=== PATIENT | male | born 1925 | race Caucasian/White ===

== ENCOUNTER → 2016-05-05 | Outpatient (CLI) | payer OTHER ==
[2016-05-05 10:42] LABS: HEMATOCRIT 38.2 % (42.0-52.0); MEAN CORPUSCULAR HEMOGLOBIN 28.8 PG (27-31); MEAN CORPUSCULAR HGB CONC 31.4 g/dL (33-37); MEAN PLATELET VOLUME 11.2 FL (7.4-12.2); RDW COEFFICIENT OF VARIATION 15.5 % (11.5-14.5); RED BLOOD COUNT 4.17 10^6/uL (4.70-6.10); WHITE BLOOD COUNT 6.83 10^3/uL (4.8-10.8)
[2016-05-05 11:03] LABS: BILIRUBIN,URINE NEGATIVE (NEG); CLARITY,URINE CLEAR (CLEAR); GLUCOSE, URINE (UA) 100 mg/dL (NEG); LEUKOCYTE ESTERASE ,URINE NEGATIVE (NEG); NITRATE,URINE NEGATIVE (NEG); OCCULT BLOOD,URINE NEGATIVE (NEG); PH,URINE 5.5 (5.0-8.5); PROTEIN,URINE NEGATIVE (NEG); UROBILINOGEN,URINE 0.2 mg/dL (0.2)
[2016-05-05 11:05] LABS: URINE SAMPLE TYPE VOIDED SPECIMEN
[2016-05-05 11:08] LABS: BUN/CREATININE RATIO 15.38 (6-20); CALCIUM 9.1 mg/dL (8.7-10.7); CREATININE 1.3 mg/dL (0.70-1.50); POTASSIUM 4.4 meq/L (3.8-5.2)
--- NOTE | 2016-05-05 11:30 | EKG ---
[address] [address] Measurements Intervals [place] Rate: 51 P: 57 UT: 164 QRS: 44 QRSD: 110 T: 4 QT: 431 QTc: 406 Interpretive Statements SINUS BRADYCARDIA No previous ECG available for comparison Electronically Signed On 05-05-16 16:03:13 MDT by Eloy Busby [email or web address]
[2016-05-05 18:04] LABS: SQUAMOUS EPITHELIAL CELL,UR FEW
--- NOTE | 2016-05-05 21:41 | DI ---
CT SCAN OF THE LEFT HIP, LEFT KNEE, AND LEFT ANKLE, 05/05/2016 10:30 AM : Clinical History: Degenerative arthritis of the left knee. Preoperative scanning for producing a cust [employer] manufactured Medacta left knee implant. Scans are obtained through the left hip, the left knee, and the left ankle without IV contrast. Sagit glenys and coronal reformatted images are also generated. LEFT HIP: Degenerative arthritis is present along the superior aspect of the hip joint. There is chondrocalcino sis. LEFT KNEE: There is severe narrowing of the medial compartment. A moderate joint effusion is present. Subchondra l cysts are present in the medial femoral condyle. Large almost 10 mm diameter cysts have developed i n the posterior aspect of the tibia. No joint effusion is present. There is chondrocalcinosis. LEFT ANKLE: There are bony densities corresponding to the course of the deltoid ligament indicating previous inju ry. The ankle mortise is intact. There is an os trigonum. The anterior, middle, and posterior subtala r joint spaces are intact. READIN. There are severe degenerative arthritis of the medial compartment of the left knee. There is a mo derate joint effusion with chondrocalcinosis. 2. The left hip shows degenerative arthritis in the superior aspect of the joint with chondrocalcino sis. 3. The left ankle exam shows evidence of old injury to the deltoid ligament. The study is otherwise unremarkable.
== END ==
LOC: LAB 10:23
PROVIDERS: ATTEND Orthopaedic Surgery
DX: M17.12 Unilateral primary osteoarthritis, left knee (principal); M25.462 Effusion, left knee; M11.262 Other chondrocalcinosis, left knee; R00.1 Bradycardia, unspecified; I10 Essential (primary) hypertension; Z96.651 Presence of right artificial knee joint
CPT/HCPCS: 36415; 73700; 80048; 81001; 85027; 86850; 87641; 93005; 93010

== ENCOUNTER → 2016-06-16 | Outpatient (CLI) | payer OTHER ==
[2016-06-16 14:24] LABS: HEMATOCRIT 39.6 % (42.0-52.0); HEMOGLOBIN 12.8 g/dL (14.0-18.0); MEAN CORPUSCULAR HGB CONC 32.3 g/dL (33-37); MEAN CORPUSCULAR VOLUME 92.7 FL (80-90); MEAN PLATELET VOLUME 11.1 FL (7.4-12.2); RED BLOOD COUNT 4.27 10^6/uL (4.70-6.10)
[2016-06-16 14:30] LABS: BILIRUBIN,URINE NEGATIVE (NEG); COLOR,URINE YELLOW; GLUCOSE, URINE (UA) NEGATIVE (NEG); NITRATE,URINE NEGATIVE (NEG); OCCULT BLOOD,URINE NEGATIVE (NEG); PH,URINE 5.5 (5.0-8.5); PROTEIN,URINE TRACE mg/dl (NEG)
[2016-06-16 14:31] LABS: CLARITY,URINE CLEAR (CLEAR); URINE SAMPLE TYPE VOID
[2016-06-16 14:32] LABS: BUN/CREATININE RATIO 17.85 (6-20); CALCIUM 9.3 mg/dL (8.7-10.7)
[2016-06-16 14:33] LABS: SQUAMOUS EPITHELIAL CELL,UR FEW
== END ==
LOC: LAB 13:58
PROVIDERS: ATTEND Orthopaedic Surgery
DX: M17.12 Unilateral primary osteoarthritis, left knee (principal); I10 Essential (primary) hypertension
CPT/HCPCS: 80048; 81001; 85027; 86850; 86900; 86901

== ENCOUNTER 2016-06-17 05:49 | Inpatient (IN) | payer OTHER ==
[2016-06-17] MEDS ORDERED: ceFAZolin Inj 2gm (Premix) 50 ML IV ONE (06:01)
[2016-06-17] MEDS ORDERED: LIDOCAINE W/ SODIUM BICARB 0.5 ML SYR ONE ×2 (06:01→07:25)
[2016-06-17] MEDS ORDERED: Lactated Ringers 1,000 ML PRIMARY IV ONE (06:02)
[2016-06-17] MEDS ORDERED: Sodium Chloride 0.9% vial 10 ML ONE (06:24)
[2016-06-17] MEDS ORDERED: HEPARIN 10,000 UNIT/1 ML ONE (06:24)
[2016-06-17] MEDS ORDERED: BUPivacaine Liposome/PF (Exparel) Inj 20ml vial INFIL ONE ×2 (06:24→08:36)
[2016-06-17] MEDS ORDERED: Gentamicin Inj 40 MG/ML VIAL ONE (06:24)
[2016-06-17] MEDS ORDERED: Bacteriostatic NaCl Inj 30ml Vial ONE (06:24)
[2016-06-17] MEDS ORDERED: Sodium Chloride 0.9% 2,000 ML ONE (06:38)
[2016-06-17] MEDS ORDERED: Sodium Chloride 0.9% 500 ML ONE (06:38)
[2016-06-17] MEDS ORDERED: fentaNYL Inj 100 MCG/2 ML VIAL ONE (07:16)
[2016-06-17] MEDS ORDERED: MORPHINE SULFATE/PF 10 MG/10 ML AMPULE ONE (07:17)
[2016-06-17] MEDS ORDERED: MIDAZOLAM 5 MG/1 ML ONE (07:17)
[2016-06-17] MEDS ORDERED: BUPIVACAINE 0.25% W/ EPI - 10 ML VIAL ONE (07:23)
[2016-06-17] MEDS ORDERED: Ketorolac Inj 30 MG, Morphine Inj 5 MG, BUPivacaine Inj 0.25% PF 150 MG SPLASH ONE ×3 (07:30)
[2016-06-17] MEDS ORDERED: Sodium Chloride 0.9% 200 ML IV ONE (07:40)
[2016-06-17] MEDS ORDERED: TRANEXAMIC ACID 1,000 MG / 10 ML VIAL ONE (07:40)
[2016-06-17] MEDS ORDERED: LIDOCAINE HCL 2 % 10 ML JELLY URO-JECT TOPICAL ONE (07:52)
[2016-06-17] MEDS ORDERED: ePHEDrine Inj 50 MG/ML AMP ONE (08:24)
[2016-06-17] MEDS ORDERED: ONDANSETRON 4 MG/2 ML VIAL ONE (08:50)
[2016-06-17] MEDS ORDERED: KETAMINE 100 MG/1 ML - 5 ML ONE (08:50)
[2016-06-17] MEDS ORDERED: ePHEDrine Inj 50 MG/ML AMP IVP PRN (10:38)
[2016-06-17] MEDS ORDERED: HYDROmorphone 2 MG/1 ML IVP PRN (10:38)
[2016-06-17] MEDS ORDERED: PROMETHAZINE 25 MG/1 ML VIAL IM PRN (10:38)
[2016-06-17] MEDS ORDERED: fentaNYL Inj 100 MCG/2 ML VIAL IVP PRN (10:38)
[2016-06-17] MEDS ORDERED: NORMAL SALINE 10 ML SYRINGE FLUSH IVP PRN ×2 (10:38→12:55)
--- NOTE | 2016-06-17 10:38 | CRNA.PROCE ---
Central Neuraxis Block Placeaz - - Safety Measures: Time Out Taken, Site Verified - - Type of Block: Subarachnoid Reason for Block: Surgical Moniters Used During Block: EKG, SPO2, NIBP Sedation Used - Enter Amount Used in Comment Field: Midazolam (mg): Yes (3mg iv) , Fentanyl (mcg): Yes (50mcg iv) Positioning: Lateral Skin Prep Used: Betadine Draped: Yes Skin Infiltration - Enter Amount Used in Comment Field: 1% Xylocaine (mL): Yes ( cesar) Introducer User: 23 Gauge Spinal Needle Used: 25 Hudson 80 mm Local Anesthetic - Enter Amount Used in Comment Field: 0.75 % Bupivacaine with Dextrose (ml): Yes (15mg) Additive Used - Enter Amount Used in Comment Field: Preservative Free Morphine ( mg): Yes (0.15mg)
[2016-06-17] MEDS ORDERED: Lactated Ringers 1,000 ML PRIMARY IV SCH (10:45)
[2016-06-17] MEDS ORDERED: GLYCOPYRROLATE 0.2 MG/1 ML VIAL ONE (11:52)
--- NOTE | 2016-06-17 12:13 | DI ---
LEFT KNEE, 06/17/2016 8:06 AM: Clinical History: Status post total knee replacement. Osteoarthritis. Incorrect needle count followi ng surgery. Previous Exam: 07/14/2011. AP and lateral views are submitted. The patient is status post total left knee replacement. The prost hetic joint articulates normally. There is no radiopaque foreign body representing a needle visualize d on either projection. There is a 1 mm metallic density in the soft tissues anterior to the proximal tibia on the AP projection. This was also present on the preoperative films from 2011. Readin. Status post total left knee replacement. The prosthetic joint articulates normally. 2. There is no evidence of a retained surgical needle on these films.
[2016-06-17] MEDS ORDERED: GLYBURIDE PO SCH (12:55)
[2016-06-17] MEDS ORDERED: CETIRIZINE HCL PO SCH (12:55)
[2016-06-17] MEDS ORDERED: Methocarbamol Tab 500 MG TAB PO PRN (12:55)
[2016-06-17] MEDS ORDERED: Ondansetron ODT Tab 8 MG TAB PO PRN (12:55)
[2016-06-17] MEDS ORDERED: MAG HYDROX/AL HYDROX/SIMETH 30 ML SUSP PO PRN (12:55)
[2016-06-17] MEDS ORDERED: CALCIUM CARBONATE 500 MG (TUMS) CHEWABLE TABLET PO PRN (12:55)
[2016-06-17] MEDS ORDERED: BISACODYL 5 MG TABLET PO PRN (12:55)
[2016-06-17] MEDS ORDERED: TAMSULOSIN 0.4 MG CAPSULE PO SCH (12:55)
[2016-06-17] MEDS ORDERED: MORPHINE SULFATE 2 MG/1 ML IVP PRN (12:55)
[2016-06-17] MEDS ORDERED: ACETAMINOPHEN 325 MG TABLET PO PRN (12:55)
[2016-06-17] MEDS ORDERED: Prochlorperazine Tab 10 MG TAB PO PRN (12:55)
[2016-06-17] MEDS ORDERED: diphenhydrAMINE 25 MG CAPSULE PO PRN (12:55)
[2016-06-17] MEDS ORDERED: ONDANSETRON 4 MG/2 ML VIAL IVP PRN (12:55)
[2016-06-17] MEDS ORDERED: BISACODYL 10 MG SUPPOSITORY RECTAL PRN (12:55)
[2016-06-17] MEDS ORDERED: IBUPROFEN 400 MG TABLET PO PRN (12:55)
[2016-06-17] MEDS ORDERED: MORPHINE SULFATE 4 MG/1 ML IV PRN (13:31)
[2016-06-17] MEDS ORDERED: MORPHINE SULFATE 2 MG/1 ML IV PRN (13:31)
[2016-06-17] MEDS ORDERED: MORPHINE SULFATE 10 MG/1 ML IV PRN (13:31)
[2016-06-17] MEDS: [UNRECOGNIZED DRUG - REMARK] INASL SCH ×2 (14:36→16:03)
--- NOTE | 2016-06-17 14:46 | CONSULT ---
Consult Note - Consult Consult Date: 06/17/16 Reason for Consult: PostOp Consulation : Ortho Requesting Physician: Dr. Barber Primary Care Provider: NICHELLE MG History and Physical - History of Present Illness Date and Time of Service: 06/17/2016, 1440 Chief Complaint: Left knee pain History of Present Illness: This very pleasant 89-year-old male that has underlying diabetes, hypertension, hypercholesterolemia, amongst other medical issues, who comes in with left knee pain that's been persistent for about the last 3 years. Patient had a prior right knee replacement and is done well with that. He's tried medications, injections, and none of those have relieved his pain. He opted for left knee replacement done today which was done by Dr. Barber. See his surgical note for details. Postoperatively, the patient denies any chest pain, shortness breath, nausea or vomiting. He has been noted to be bradycardic but has been done at home to have a heart rate drop as low as the 50s. He has been somewhat hypertensive, but did hold his blood pressure medications prior to surgery today. He has had some confusion coming out of surgery, but is overall fairly oriented to knowing that he is in the hospital for some knee pain issues. No other exacerbating factors were noted. 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 Past Medical History Medical History: Diabetes mellitus, type 2. Benign hypertension. Arthritis. Hyperlipidemia. BPH (benign prostatic hyperplasia). Gastroesophageal reflux disease. Seasonal allergies Surgical History: 1. Appendectomy. 2. Right knee replacement. 3. Some sort of gastrectomy or partial gastrectomy presumably related ulcer disease, remote. Pertinent Family History: The patient, apparently, has outlived his family. Medical conditions are not known. Past Social History: Does not currently smoke or drink alcohol, is . Lives here in [place], [place]. Has 2 daughters services power of associate attorney. [facility]. Tobacco Use: Former Smoker Substance Use Type: None Alcohol Use: None Review of Systems - Respiratory Respiratory: REPORTS: Negative System Review - Cardiovascular Cardiovascular: REPORTS: Negative System Review - Gastrointestinal Gastrointestinal / Abdominal: REPORTS: Negative System Review - Genitourinary Genitourinary: REPORTS: Negative System Review - Musculoskeletal Musculoskeletal: REPORTS: Joint Pain - Knees - Neurological Neurologic: REPORTS: Negative System Review Medication / Allergies Home Medications: Home Medications Medication Instructions Recorded Confirmed Type Aspirin [Aspir 81] 1 tab PO QD tab 06/20/15 06/17/16 History Cetirizine HCl 1 tab PO DAILY tab 06/20/15 06/17/16 History Cromolyn Sodium [Nasal Allergy 1 spr INASL TID spr 06/20/15 06/17/16 History Matteson] Glyburide 0.5 mg PO QHS tab 06/20/15 06/17/16 History Losartan Potassium 1 tab PO DAILY tab 06/20/15 06/17/16 History Meloxicam 1 tab PO DAILY tab 06/20/15 06/17/16 History Methocarbamol 1 tab PO QID #0 tab 05/05/16 06/17/16 Clinic Omeprazole 2 cap PO AC #0 cap 05/05/16 06/17/16 Clinic Simvastatin 0.5 tab PO QHS #0 tab 05/05/16 06/17/16 Clinic Tamsulosin HCl 1 cap PO BID #0 cap 05/05/16 06/17/16 Clinic Levothyroxine Sodium 1 tab PO DAILY tab 06/11/16 06/17/16 History Lidocaine 1 patch TRANSDERM DAILY patch 06/11/16 06/17/16 History Allergies/Adverse Reactions: Allergies Allergy/AdvReac Type Severity Reaction Status Date / Time No Known Allergies Allergy Verified 06/17/16 06:26 Exam - Vitals Vital Signs: Vital Signs Vital Signs - Last Taken Temperature 96.3 F L 06/17/16 12:53 Pulse Rate 72 06/17/16 12:53 Respiratory Rate 14 06/17/16 12:53 Blood Pressure 165/88 06/17/16 12:53 Pulse Ox 98 06/17/16 12:53 Currently on oxygen. Heart rate during my exam ranged from 50-60 routinely. - General General Appearance: POSITIVE: No Acute Distress, Cooperative - Head Head Exam: POSITIVE: Normal Inspection, Normocephalic, Atraumatic - Eye Eye Exam: POSITIVE: No Scleral Icterus - ENT ENT Exam: POSITIVE: Mucous Membranes Moist - Neck Neck Exam: POSITIVE: Normal Inspection, No Tenderness, No Thyromegaly - Respiratory Respiratory Exam: POSITIVE: Clear to Auscultation - Bilaterally, Breathing Non Labored - Cardiovascular Cardiovascular Exam: POSITIVE: No Murmur, No Clicks, No Gallops, No Rubs, Bradycardia, No JVD - GI/Abdominal GI/Abdominal Exam: POSITIVE: Normal Bowel Sounds, Non Tender, Non Distended, Soft - Rectal Rectal Exam: POSITIVE: Deferred - External Exam: POSITIVE: Deferred Exam: POSITIVE: Deferred - Extremities Extremities Exam: POSITIVE: No Clubbing Present, No Edema Present, No Cyanosis Present, Joint Swelling (Left knee is dressed, dressing appears dry and intact.) - Neurological Neurological Exam: POSITIVE: Alert, Oriented x 3, No Facial Droop, Speech Intact / Clear, Moves All Extremities Equally - Integumentary Integumentary Exam: POSITIVE: Normal Color, Warm, Dry, Intact Results - Labs Labs - Last 24 Hours: Preoperative labs were reviewed, and when I note is what appears to be macrocytic anemia. Electrolytes look okay, creatinine is at the upper limits of normal probably representing stage III chronic kidney disease with a creatinine of 1.4. 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 insulin use: without nursing home use Qualified Description : Controlled type 2 diabetes mellitus without complication, without long-term current use of insulin Qualifier Code(s): (E11.9) Type 2 diabetes mellitus without complications (3) Hypercholesterolemia Current Visit: Yes Status: Chronic (4) Macrocytic anemia Current Visit: Yes Status: Acute (5) History of gastric ulcer Current Visit: Yes Status: Acute (6) Status post left knee replacement Current Visit: Yes Status: Acute - Assessment / Plan Additional Assessment/Plan Details: I'll check medications and resume medications for hypertension. PT and OT DVT prophylaxis. As per orthopedics. Should have 10-14 days for knee replacement. Monitor blood sugars with diabetic history. On glyburide, this may be held for now to avoid hypoglycemia. We will replace with insulin. Vitamin B12 and folate levels due to macrocytic anemia. Patient is full code. I confirmed that with his daughter. Thank you for this consult, it will be our pleasure to continue to assist in the management and evaluation of the patient's medical problems during his hospital stay.
[2016-06-17] MEDS ORDERED: Insulin Sliding Scale Protocol SUBCUT PRN (14:53)
[2016-06-17] MEDS ORDERED: DEXTROSE 50%-WATER SYRINGE 50 ML SYRINGE IVP PRN (14:53)
[2016-06-17] MEDS ORDERED: DEXTROSE 31 GM GEL PO PRN (14:53)
[2016-06-17] MEDS ORDERED: Glucagon Inj Vial 1 MG/ML VIAL IM PRN (14:53)
[2016-06-17] MEDS: ceFAZolin Inj 2gm (Premix) 2 GM in Dextrose 1 BAG IV SCH (16:00)
[2016-06-17] MEDS: LEVOTHYROXINE 100 MCG TABLET PO SCH (16:01)
[2016-06-17] MEDS: LOSARTAN 50 MG TABLET PO SCH (16:01)
[2016-06-17] MEDS: Lactated Ringers 1,000 ML PRIMARY IV SCH (16:01)
[2016-06-17] MEDS ORDERED: OMEPRAZOLE 20 MG CAPSULE PO SCH (16:30)
[2016-06-17] MEDS: OMEPRAZOLE 20 MG CAPSULE PO SCH (16:57)
[2016-06-17] MEDS: ASPIRIN EC 81 MG TABLET PO SCH (17:11)
[2016-06-17] MEDS: Insulin Lispro Flexpen 300 UNIT/3 ML INSULN.PEN SUBCUT SCH ×2 (17:19→20:07)
[2016-06-17] MEDS: Simvastatin Tab 20 MG TAB PO SCH (20:03)
[2016-06-17] MEDS: DOCUSATE 100 MG CAPSULE PO SCH (20:03)
[2016-06-17] MEDS: TAMSULOSIN 0.4 MG CAPSULE PO SCH (20:03)
--- NOTE | 2016-06-17 20:45 | ORTHO.PROG ---
Last Taken Vital Signs: Vital Signs - Last Taken Temperature 96.4 F L 06/17/16 20:15 Pulse Rate 60 06/17/16 20:15 Respiratory Rate 18 06/17/16 20:15 Blood Pressure 136/76 06/17/16 20:15 Pulse Ox 91 06/17/16 20:15 Subjective: Patient doing well status post left total knee replacement with no significant pain or discomfort Objective: Block is still in place with absent femoral nerve function. Patient with some decreased, peroneal and tibial sensory question secondary to spinal Dressing in place no evidence of drainage or active issues. Intake and Output - 8hrs 06/16/16 06/17/16 06/17/16 06/17/16 21:59 05:59 13:59 21:59 Intake: IV 2500 525 Output: Output, Urine Amount 450 Output, Estimated Blood 300 Loss Amount Other: Percent Meal Consumed Refused 100% Weight 70.307 kg Weight Measurement Method Stated by Patient Assessment: Left total knee replacement doing well Plan: Patient. In the morning, patient is using the CPM machine this evening Deep vein thromboses prophylaxis with pneumatic and Lovenox Ice on regular basis, knee immobilizer for next 72 hours
[2016-06-18] MEDS: ceFAZolin Inj 2gm (Premix) 2 GM in Dextrose 1 BAG IV SCH (00:23)
[2016-06-18] MEDS: HYDROcodone-APAP 7.5 MG-325 MG TABLET PO PRN ×2 (03:57→07:30)
[2016-06-18 04:42] LABS: HEMATOCRIT 34.2 % (42.0-52.0); HEMOGLOBIN 10.9 g/dL (14.0-18.0); MEAN CORPUSCULAR HEMOGLOBIN 29.5 PG (27-31); MEAN CORPUSCULAR HGB CONC 31.9 g/dL (33-37); MEAN CORPUSCULAR VOLUME 92.7 FL (80-90); MEAN PLATELET VOLUME 11.4 FL (7.4-12.2); RED BLOOD COUNT 3.69 10^6/uL (4.70-6.10)
[2016-06-18 05:04] LABS: CALCIUM 8.6 mg/dL (8.7-10.7)
[2016-06-18] MEDS: LEVOTHYROXINE 100 MCG TABLET PO SCH (05:12)
[2016-06-18] MEDS: Lactated Ringers 1,000 ML PRIMARY IV SCH (05:13)
[2016-06-18] MEDS ORDERED: OMEPRAZOLE 20 MG CAPSULE PO SCH (07:00)
[2016-06-18] MEDS: Insulin Lispro Flexpen 300 UNIT/3 ML INSULN.PEN SUBCUT SCH ×4 (07:14→20:14)
[2016-06-18] MEDS: OMEPRAZOLE 20 MG CAPSULE PO SCH ×2 (07:28→11:51)
--- NOTE | 2016-06-18 07:54 | ORTHO.PROG ---
Last Taken Vital Signs: Vital Signs - Last Taken Temperature 98.8 F 06/18/16 07:08 Pulse Rate 94 06/18/16 07:08 Respiratory Rate 16 06/18/16 07:08 Blood Pressure 107/66 06/18/16 07:08 Pulse Ox 90 06/18/16 07:08 Subjective: Patient notes the leg feels today, he has good sensation Objective: A patient's femoral block is still working to some degree motor and sensory exam of the lower extremity is normal otherwise his dressing is clean and dry. No calf pain Laboratory Results 06/18/16 Range/Units 04:00 WBC 6.33 (4.8-10.8) 10^3/uL RBC 3.69 L (4.70-6.10) 10^6/uL Hgb 10.9 L (14.0-18.0) g/dL Hct 34.2 L (42.0-52.0) % MCV 92.7 H (80-90) FL MCH 29.5 (27-31) PG MCHC 31.9 L (33-37) g/dL RDW Std Deviation 48.0 (39-50) fL RDW Coeff of Susan 14.6 H (11.5-14.5) % Plt Count 161 (140-350) 10*3/uL MPV 11.4 (7.4-12.2) FL Sodium 137 (135-145) meq/L Potassium 4.6 (3.8-5.2) meq/L Chloride 104 (98-112) meq/L Carbon Dioxide 26 (23-33) meq/L Anion Gap 7 (5-20) BUN 20 (7-22) mg/dL Creatinine 1.0 (0.70-1.50) mg/dL Estimated GFR (>60 ml/min/1.73m(2)) BUN/Creatinine Ratio 20.00 (6-20) Glucose 109 (78-110) mg/dL Calculated Osmolality 287.0 (267-292) mOsm/kg Calcium 8.6 L (8.7-10.7) mg/dL Vitamin B12 432 (239-931) pg/mL Serum Folate 19.4 (2.76-20.0) NG/ML Assessment: Status post left total knee replacement doing well Plan: Patient will work with physical therapy occupational therapy today. I did discuss issues in regard to the block and this should feel better as we move forward in time. Strict use of the knee immobilizer while mobilizing at the current time because of a femoral block. 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
[2016-06-18] MEDS: DOCUSATE 100 MG CAPSULE PO SCH ×2 (08:40→20:10)
[2016-06-18] MEDS: ENOXAPARIN SODIUM 30 MG/0.3 ML SYRINGE SUBCUT SCH (08:40)
[2016-06-18] MEDS: ASPIRIN EC 81 MG TABLET PO SCH (08:41)
[2016-06-18] MEDS: LOSARTAN 50 MG TABLET PO SCH (08:41)
[2016-06-18] MEDS: LORATADINE 10 MG TABLET PO SCH (08:41)
--- NOTE | 2016-06-18 09:27 | CRNA.PROCE ---
Nerve Block Documentation - - Safety Measures: Time Out Taken, Site Verified - - Type of Nerve Block Used: Left Femoral Nerve Block Position for Nerve Block: Supine Moniters Used During Block: EKG, SPO2, NIBP Oxygen Sumpplented: Yes Skin Prep Used: ChloroPrep Technique: Nerve Stimulator Nerve Block Needle Used: 80 mm ProBlk II Stimulation Hz: 1.0 Stimulation Staring mA: 1.2 Stimulation Ending mA: 0.5 Local Anesthetic - Enter Amt in Comment Field: 0.25 % Bupivicaine with Epinephrine 1:200,000 (mL): Yes (30ml)
--- NOTE | 2016-06-18 10:59 | CRNA.PROGR ---
Anesthesia Note Anesthesia Progress Note: Anesthesia Post OP Note Pt is sitting up in chair at bed side. Nursing staff reported that the patient has not been compliant with the use of the knee immobilizer and as a result fell this AM. I reiterated with the patient the importance of keeping the knee immobilizer on when not in bed for the 72hour timeframe post block. Otherwise the patient is doing well, current VS are stable and he has been tolerating a regular diet. Vital Signs (Last 8 hours) Temp Pulse Pulse Resp BP Pulse Ox 06/18/16 07:08 98.8 F 94 16 107/66 90 06/18/16 07:00 94 06/18/16 05:00 98.8 F 89 20 113/68 90 06/18/16 03:00 77
[2016-06-18] MEDS ORDERED: HALOPERIDOL LACTATE 5 MG/1 ML AMPULE IVP ONE ×2 (11:00→11:54)
[2016-06-18] MEDS ORDERED: HALOPERIDOL LACTATE 5 MG/1 ML AMPULE ONE ×2 (11:04→11:38)
[2016-06-18] MEDS ORDERED: HALOPERIDOL LACTATE 5 MG/1 ML AMPULE IM ONE (11:37)
--- NOTE | 2016-06-18 11:43 | PTI REPORT ---
Thank you for the referral of Julio César Machuca. He was seen on 06/17/16 for an inpatient evaluation status post left total knee arthroplasty. SUBJECTIVE: The patient is an 89-year-old male. According to the nursing staff the patient is on again off again sleeping due to just having surgery earlier this morning. However, due to orders from Dr. Barber he wants him seen this afternoon, specifically for the CPM to be placed on his leg. PAST MEDICAL HISTORY: Past medical history can be found in the patient's medical record. OBJECTIVE FINDINGS: Pain: The patient denies having pain at this time; however, is still feeling the full effects from his block. Incision: His surgical incision is unable to be seen due to the post-op bandage. Bed mobility/Transfers: No bed mobility or transfers were attempted due to the patient's cognitive state from currently recovering from being out of surgery. Range of motion: The patient was unable to perform any active range of motion of the left lower extremity at this time. He was able to tolerate 0 to 60 degrees of passive range of motion with the CPM as prescribed by Dr. Barber. ASSESSMENT: Problem List: Pain n the left knee Decreased passive and active range of motion in the left knee Decreased strength in the left knee Short-Term Goals: To be met by discharge from inpatient: Patient will be able to transfer from bed to stand independently. Patient will be able to ambulate 100 feet with walker, weight-bearing as tolerated. Patient will be able to ascend and descend five stairs with walker, weight- bearing as tolerated. Long-Term Goals: To be met following discharge from inpatient: Patient will be seen by outpatient physical therapy. TREATMENT PLAN: Patient will be seen B.I.D during the week and one time per day over the weekend as an inpatient to address the above goals and objectives. INITIAL TREATMENT: Treatment today consisted of the initial evaluation followed by an application of the CPM set from 0 to 60 degrees as prescribed by Dr. Barber. The patient was also issued a knee immobilizer. The nursing staff was educated on placement of the knee immobilizer on the patient at night. We will attempt to get the patient up first thing tomorrow morning. [facility] HEALTH CENTERPhilippe
--- NOTE | 2016-06-18 15:21 | PDOC(PROG) ---
Date and Time of Service: 06/18/2016, 1520 Interval History: No chest pain, no shortness breath, has been combative through the morning and required Haldol. I don't note this is a combination of possible underlying dementia, pain medications, or other. But we'll make some medication adjustments to help. Family not available at bedside to discuss further. Objective : Data - Labs CBC and BMP: 06/18/16 04:00 06/18/16 04:00 Labs - Last 24 Hours: Laboratory Results 06/18/16 Range/Units 04:00 WBC 6.33 (4.8-10.8) 10^3/uL RBC 3.69 L (4.70-6.10) 10^6/uL Hgb 10.9 L (14.0-18.0) g/dL Hct 34.2 L (42.0-52.0) % MCV 92.7 H (80-90) FL MCH 29.5 (27-31) PG MCHC 31.9 L (33-37) g/dL RDW Std Deviation 48.0 (39-50) fL RDW Coeff of Susan 14.6 H (11.5-14.5) % Plt Count 161 (140-350) 10*3/uL MPV 11.4 (7.4-12.2) FL Sodium 137 (135-145) meq/L Potassium 4.6 (3.8-5.2) meq/L Chloride 104 (98-112) meq/L Carbon Dioxide 26 (23-33) meq/L Anion Gap 7 (5-20) BUN 20 (7-22) mg/dL Creatinine 1.0 (0.70-1.50) mg/dL Estimated GFR (>60 ml/min/1.73m(2)) BUN/Creatinine Ratio 20.00 (6-20) Glucose 109 (78-110) mg/dL Calculated Osmolality 287.0 (267-292) mOsm/kg Calcium 8.6 L (8.7-10.7) mg/dL Vitamin B12 432 (239-931) pg/mL Serum Folate 19.4 (2.76-20.0) NG/ML Objective : Exam - General General Appearance: No Acute Distress, Cooperative Additional General Exam Details: Vital Signs - Last Taken Temperature 98.8 F 04/26/17 07:08 Pulse Rate 94 06/18/16 07:08 Respiratory Rate 16 06/18/16 07:08 Blood Pressure 107/66 06/18/16 07:08 Pulse Ox 90 06/18/16 07:08 - Head Head Exam: Normal Inspection, Normocephalic, Atraumatic - Eye Eye Exam: No Scleral Icterus - Respiratory Respiratory Exam: Clear to Auscultation - Bilaterally, Breathing Non Labored - Cardiovascular Cardiovascular Exam: RRR, No Murmur, No Clicks, No Gallops, No Rubs, No JVD - GI/Abdominal GI/Abdominal Exam: Normal Bowel Sounds, Non Tender, Non Distended, Soft - Extremities Extremities Exam: No Clubbing Present, No Edema Present, No Cyanosis Present, Joint Swelling (Left knee swollen, dressed) - Neurological Neurological Exam: Alert, No Facial Droop, Speech Intact / Clear, Moves All Extremities Equally Additional Neurological Exam Details: Alert to being in the hospital and having knee surgery, thought he was in [place], [place]. 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 We will adjust medications and trying to eliminate. Discontinue catheter and stop telemetry monitoring. Patient currently 1 to 1 monitoring. Continue PT and OT/DVT prophylaxis Patient had a fall but apparently no injuries, orthopedics aware. No changes for diabetes or hypertension management at this point. Photo / Body Diagrams - Uploaded Photos Uploaded Photos:
--- NOTE | 2016-06-18 15:59 | PT.PROG ---
Progress Note Progress Note: S. Patient stated that he doesn't like therapy and he doesn't wants to do his own thing. O. Patient was wheeled to the therapy gym where he had heat and performed exercises in the form of; heel slides, quad sets, ankle pumps, glute squeezes, short arc quads, hip abduction/adduction, patient ambulated 10 feet to the wheelchair where he was returned to his room and transferred to the chair and was left with alarm and call light. A. Patient tolerated exercises fair, he required frequent cues to stay motivated and perform exercises correctly. Patient has quad insufficiency and was struggling to ambulate without knee giving out. Patient would continue to benefit from skilled therapy to increase strength and mobility. P. continue POC.
[2016-06-18] MEDS: Sodium Chloride 0.9% 1,000 ML PRIMARY IV SCH (18:37)
[2016-06-18] MEDS: TAMSULOSIN 0.4 MG CAPSULE PO SCH ×2 (18:37→20:10)
[2016-06-18] MEDS: HYDROcodone-APAP 5 MG -325 MG TABLET PO PRN (20:10)
[2016-06-18] MEDS: Simvastatin Tab 20 MG TAB PO SCH (20:10)
[2016-06-19] MEDS: HYDROcodone-APAP 5 MG -325 MG TABLET PO PRN ×3 (03:18→16:10)
[2016-06-19] MEDS: LEVOTHYROXINE 100 MCG TABLET PO SCH (05:17)
[2016-06-19] MEDS: OMEPRAZOLE 20 MG CAPSULE PO SCH ×2 (07:37→12:19)
[2016-06-19 07:47] LABS: HEMATOCRIT 32.7 % (42.0-52.0); HEMOGLOBIN 10.4 g/dL (14.0-18.0); MEAN CORPUSCULAR HEMOGLOBIN 29.6 PG (27-31); MEAN CORPUSCULAR HGB CONC 31.8 g/dL (33-37); MEAN CORPUSCULAR VOLUME 93.2 FL (80-90); MEAN PLATELET VOLUME 11.2 FL (7.4-12.2); RED BLOOD COUNT 3.51 10^6/uL (4.70-6.10)
[2016-06-19 08:04] LABS: CALCIUM 8.1 mg/dL (8.7-10.7)
[2016-06-19] MEDS: Sodium Chloride 0.9% 1,000 ML PRIMARY IV SCH (08:11)
[2016-06-19] MEDS: LORATADINE 10 MG TABLET PO SCH (08:57)
[2016-06-19] MEDS: DOCUSATE 100 MG CAPSULE PO SCH ×2 (08:57→20:19)
[2016-06-19] MEDS: ASPIRIN EC 81 MG TABLET PO SCH (08:57)
[2016-06-19] MEDS: LOSARTAN 50 MG TABLET PO SCH (08:58)
--- NOTE | 2016-06-19 09:03 | ORTHO.PROG ---
Last Taken Vital Signs: Vital Signs - Last Taken Temperature 97.8 F 06/19/16 07:08 Pulse Rate 88 06/19/16 07:08 Respiratory Rate 17 06/19/16 07:08 Blood Pressure 140/73 06/19/16 07:08 Pulse Ox 91 06/19/16 07:08 Subjective: Status post left total knee replacement doing better today as far as function and wakefulness Objective: Examination shows the dressing is clean and dry motor and sensory exam is good he has good flexion of the knee has trouble doing a straight leg raise. He can get close to about 10 short of full extension hip motion is good with no pain or discomfort. Patient is alert and oriented 3 today. Patient is with his daughter. Intake and Output - 8hrs 06/18/16 06/18/16 06/19/16 06/19/16 13:59 21:59 05:59 13:59 Intake: IV 695 145 Intake Oral Amount 440 200 240 Output: Output, Urinary Catheter 175 Amount Output, Urine Amount 200 118 169 Other: Percent Meal Consumed 100% 100% Number of Voids 1 Laboratory Results 06/18/16 06/19/16 Range/Units 04:00 07:30 WBC 7.28 (4.8-10.8) 10^3/uL RBC 3.51 L (4.70-6.10) 10^6/uL Hgb 10.4 L (14.0-18.0) g/dL Hct 32.7 L (42.0-52.0) % MCV 93.2 H (80-90) FL MCH 29.6 (27-31) PG MCHC 31.8 L (33-37) g/dL RDW Std Deviation 48.6 (39-50) fL RDW Coeff of Susan 14.9 H (11.5-14.5) % Plt Count 137 L (140-350) 10*3/uL MPV 11.2 (7.4-12.2) FL Sodium 135 (135-145) meq/L Potassium 4.3 (3.8-5.2) meq/L Chloride 103 (98-112) meq/L Carbon Dioxide 25 (23-33) meq/L Anion Gap 7 (5-20) BUN 19 (7-22) mg/dL Creatinine 1.0 (0.70-1.50) mg/dL Estimated GFR (>60 ml/min/1.73m(2)) BUN/Creatinine Ratio 19.00 (6-20) Glucose 103 (78-110) mg/dL Calculated Osmolality 281.0 (267-292) mOsm/kg Calcium 8.1 L (8.7-10.7) mg/dL Vitamin B12 432 (239-931) pg/mL Serum Folate 19.4 (2.76-20.0) NG/ML Assessment: Left total knee replacement overall from an orthopedic standpoint doing well Patient with mild agitation yesterday got up on his own despite multiple reminders with a fall but no significant injury noted. Patient doing much better today from a cognitive standpoint. Plan: We will continue with physical therapy and occupational therapy. Limit pain medication since his may have contributed to some of his symptoms. Deep vein thromboses prophylaxis. Discussed care with patient's daughter and also daughter on the phone.
[2016-06-19] MEDS: Insulin Lispro Flexpen 300 UNIT/3 ML INSULN.PEN SUBCUT SCH ×4 (10:15→20:36)
--- NOTE | 2016-06-19 10:40 | PT.PROG ---
Progress Note Progress Note: S: Pt reports that his knee is "letting him know it is still there", that he has constant 3/10 aching pain that is worse in the dependent position. O: Treatment consistent of: ambulation 10'x2 with RW and CGA for safety, STS 2x5 , B ankle pumps 20x, B LAQ 20x, heel slides/quad sets 20x L LE, SLR 20x 0# L LE , hip abd/adduction L LE 20x 0#, SAQ L LE 20x0#, MH to L knee 20' in hooklying, incision was inspected and is clean, dry and intact. A: Pt was able to stay focused and on task without impulsive actions, did report complete exhaustion at completion of therex. P: Treat per POC to address established goals and objectives.
[2016-06-19] MEDS: ENOXAPARIN SODIUM 30 MG/0.3 ML SYRINGE SUBCUT SCH (10:55)
--- NOTE | 2016-06-19 13:05 | OT.PROG ---
Progress Note Progress Note: S: Pt. verbalized sleeping well the night prior. Pt. reported frustration with immobilization splint and inability to transfer and ambulate independently. O: Pt. participated in 30 minute OT session to address LB dressing, functional transfers and cognitive status. Pt. (I) donned pants up to thighs but required mod A for [id number] transfer to pull pants up to hip level. Pt. then ambulated 10ft. with FWW, needing mod A to maintain balance. Pt. required mod A to maintain balance while transferring to sitting in the w/c to be transported down to therapy gym. Pt. demonstrated only mild impulsive behaviors during transfers and sitting in w/c. In the gym, the pt. then completed the Pascual Cognitive Assessment. The pt. demonstrated high levels of frustration with completion of the assessment. Pt. received the following scores: Visuospatial/ executive functionin/5, namin/3, attention: 5/6, language: 1/3, abstraction: 2/2, delayed recall: 0/5, orientation 5/6. The patient also received one additional point for having less than 12 years of education, giving him a total of 21/30. A: Pt.'s decreased success with LB dressing, functional transfers and his mild cognitive impairment have resulted in an inability to return to functional independence. Pt. demos good progress by his need for mod A with all transfers instead of max A from the session prior. The pt. demos good rehab potential by the reduction in his impulsive behaviors during functional transfers and therapeutic activities from severe to mild. This pt. would benefit from continued skilled OT to address decreased success with LB dressing, functional transfers and his mild cognitive impairment. P: Pt. will continue skilled OT services 2x/day to address decreased independence with LB dressing, functional transfers and cognition.
--- NOTE | 2016-06-19 16:48 | OT.PROG ---
Progress Note Progress Note: S: pt stated he was from [place], reported to nursing when taking down for therapy that he did not need pain meds at this time. O: pt was seen in his room in the p.m. He completed transfer from recliner to w /c with Mod A sit to stand and min A to chair as he is very compulsive and unsafe. He was transferred downstairs in w/c and completed one more transfer approx 6 ft to EOB and received moist heat to knee. Pt completed UE exercises with 2 # dumbell in bicep flex, shoulder press which cause increase pain mainly in R shoulder. Pt then completed horizontal abd/add x15 which also increase pain. Rows x15 with BUE and then moved to arm bike for 5 min. Pt was returned to his room by OT and was left upright in chair with alarm business integration manager light within reach. A: pt may continue to benefit from therapy to increase activity tolerance during transfers. He is very impulsive and is unaware of safety precautions and needs to be supervised/CGA during all transfers as he is a fall risk. P: continue per plan of care.
[2016-06-19] MEDS: TAMSULOSIN 0.4 MG CAPSULE PO SCH ×2 (17:24→20:19)
--- NOTE | 2016-06-19 17:43 | PDOC(PROG) ---
Date and Time of Service: 06/19/2016, 1740 Interval History: No chest pain. No shortness of breath. States that his knee hurts but the pain seems to be fairly well-controlled. A little more alert today, conversant , and less agitated. He appeared to be confused for Dr. Barber's exam earlier. The patient is not a candidate for discharge home and I discussed this with the patient and his daughter. I think he would benefit from a swing bed, but if he is not interested in that we may need to consider snf. Objective : Data - Labs CBC and BMP: 06/19/16 07:30 06/19/16 07:30 Labs - Last 24 Hours: Laboratory Results 06/19/16 Range/Units 07:30 WBC 7.28 (4.8-10.8) 10^3/uL RBC 3.51 L (4.70-6.10) 10^6/uL Hgb 10.4 L (14.0-18.0) g/dL Hct 32.7 L (42.0-52.0) % MCV 93.2 H (80-90) FL MCH 29.6 (27-31) PG MCHC 31.8 L (33-37) g/dL RDW Std Deviation 48.6 (39-50) fL RDW Coeff of Susan 14.9 H (11.5-14.5) % Plt Count 137 L (140-350) 10*3/uL MPV 11.2 (7.4-12.2) FL Sodium 135 (135-145) meq/L Potassium 4.3 (3.8-5.2) meq/L Chloride 103 (98-112) meq/L Carbon Dioxide 25 (23-33) meq/L Anion Gap 7 (5-20) BUN 19 (7-22) mg/dL Creatinine 1.0 (0.70-1.50) mg/dL Estimated GFR (>60 ml/min/1.73m(2)) BUN/Creatinine Ratio 19.00 (6-20) Glucose 103 (78-110) mg/dL Calculated Osmolality 281.0 (267-292) mOsm/kg Calcium 8.1 L (8.7-10.7) mg/dL Objective : Exam - General General Appearance: No Acute Distress, Cooperative Additional General Exam Details: Vital Signs - Last Taken Temperature 98.2 F 06/19/16 16:21 Pulse Rate 111 H 06/19/16 16:21 Respiratory Rate 18 06/19/16 16:21 Blood Pressure 161/84 06/19/16 16:21 Pulse Ox 97 06/19/16 16:21 - Eye Eye Exam: No Scleral Icterus - Respiratory Respiratory Exam: Clear to Auscultation - Bilaterally, Breathing Non Labored - Cardiovascular Cardiovascular Exam: RRR, No Murmur, No Clicks, No Gallops, No Rubs, No JVD - GI/Abdominal GI/Abdominal Exam: Normal Bowel Sounds, Non Tender, Non Distended, Soft - Extremities Extremities Exam: No Clubbing Present, No Edema Present, No Cyanosis Present Additional Extremities Exam Details: Knee immobilizer in place on left side. - Neurological Neurological Exam: Alert, No Facial Droop, Speech Intact / Clear Assessment and Plan - Patient Problems (1) Delirium Current Visit: Yes Status: Acute Comment: Improved but not resolved. (2) Hypertension Current Visit: Yes Status: Acute Qualifiers: Hypertension type: essential hypertension Qualified Description: Essential hypertension Qualifier Code(s): (I10) Essential (primary) hypertension (3) Diabetes mellitus type II, controlled Current Visit: Yes Status: Acute Qualifiers: Diabetes mellitus complication status: without complication Diabetes mellitus senior care insulin use: without senior care use Qualified Description : Controlled type 2 diabetes mellitus without complication, without long-term current use of insulin Qualifier Code(s): (E11.9) Type 2 diabetes mellitus without complications (4) Hypercholesterolemia Current Visit: Yes Status: Chronic Comment: Given the cognitive impairments, I think it's pertinent to stop the statin. (5) Macrocytic anemia Current Visit: Yes Status: Acute (6) History of gastric ulcer Current Visit: Yes Status: Acute (7) Status post left knee replacement Current Visit: Yes Status: Acute - Assessment / Plan Additional Assessment/Plan Details: Continue PT and OT, DVT prophylaxis, swing bed evaluation. I strongly encourage swing bed, but if the patient is not amenable to that, perhaps he will look at [facility] facility. Discussed with patient and patient's daughter. She is very reluctant to want to be involved in these conversations that she feels she is being mean to her dad. Stop the statin. Check labs tomorrow Photo / Body Diagrams - Uploaded Photos Uploaded Photos:
[2016-06-19] MEDS ORDERED: HALOPERIDOL LACTATE 5 MG/1 ML AMPULE IM ONE (17:51)
[2016-06-19] MEDS ORDERED: QUEtiapine Tab 100 MG TAB PO SCH (21:00)
[2016-06-20] MEDS: LEVOTHYROXINE 100 MCG TABLET PO SCH (04:49)
[2016-06-20 07:03] LABS: HEMATOCRIT 31.3 % (42.0-52.0); HEMOGLOBIN 10.1 g/dL (14.0-18.0); MEAN CORPUSCULAR HGB CONC 32.3 g/dL (33-37); MEAN CORPUSCULAR VOLUME 92.9 FL (80-90); MEAN PLATELET VOLUME 11.3 FL (7.4-12.2); RED BLOOD COUNT 3.37 10^6/uL (4.70-6.10)
[2016-06-20 07:17] LABS: CALCIUM 8.3 mg/dL (8.7-10.7)
[2016-06-20] MEDS: Insulin Lispro Flexpen 300 UNIT/3 ML INSULN.PEN SUBCUT SCH ×4 (07:26→21:40)
[2016-06-20] MEDS: HYDROcodone-APAP 5 MG -325 MG TABLET PO PRN (07:30)
[2016-06-20] MEDS: OMEPRAZOLE 20 MG CAPSULE PO SCH ×2 (07:30→12:22)
[2016-06-20] MEDS: ENOXAPARIN SODIUM 30 MG/0.3 ML SYRINGE SUBCUT SCH (08:32)
[2016-06-20] MEDS: DOCUSATE 100 MG CAPSULE PO SCH ×2 (08:32→21:39)
[2016-06-20] MEDS: ASPIRIN EC 81 MG TABLET PO SCH (08:32)
[2016-06-20] MEDS: LOSARTAN 50 MG TABLET PO SCH (08:32)
[2016-06-20] MEDS: LORATADINE 10 MG TABLET PO SCH (08:32)
--- NOTE | 2016-06-20 16:31 | PT.PROG ---
Progress Note Progress Note: S. Patient stated that he is very sore this morning. O. Patient was wheeled to the therapy gym where he had heat and performed exercises in the form of; heel slides, quad sets, ankle pumps, short arc quads all x 10, patient performed sit to stands x 5, then ambulated 10 feet to the wheelchair and was returned to his room where he was left in his chair with alarm and call light. A. Patient tolerated exercises fair, he continues to struggle with motivation and endurance. Patient would continue to benefit from skilled therapy to increase strength, mobility and endurance. P. continue POC.
--- NOTE | 2016-06-20 16:35 | PT.PROG ---
Progress Note Progress Note: S. Patient stated that he is tired this afternoon. O. Patient was wheeled to the therapy gym where he had heat and performed exercises in the form of; heel slides, quad sets, ankle pumps, short arc quads, long arc quads, marches, heel toe raises all x 10, patient ambulated 15 feet to the wheelchair and was returned to his room where he was left in his chair with alarm and call light. A. Patient tolerated exercises fair, he continues to struggle with motivation and endurance. Patient continues to be very impulsive and requires frequent verbal cues to stay motivated and perform exercises and ambulation correctly and safely. Patient would continue to benefit from skilled therapy to increase strength, mobility and endurance. P. continue POC.
--- NOTE | 2016-06-20 16:45 | OTI REPORT ---
Thank you for the referral of Julio César Machuca. He was seen on 06/18/16 for an occupational therapy inpatient evaluation secondary to a left total knee arthroplasty. SUBJECTIVE: The patient is an 89-year-old male who is being seen today secondary to having a total knee replacement. When the therapist walked in the room, the staff was helping him from a fall. It was observed right away that the patient is very impulsive and has decreased safety awareness. He is not able to make good decisions at this point in time. The patient's knee does not have full feeling yet and even in the knee immobilizer, he was not able to bear weight on the left leg. The patient and his daughter report that the patient lives at home by himself. The patient's daughter reports that the patient was independent with everything prior to surgery. She states he dressed himself, performed his own showers, prepared his own meals, and was independent with driving, etc. PAST MEDICAL HISTORY: Past medical history can be found in the patient's medical record. OBJECTIVE FINDINGS: General observations: The therapist immediately assisted nursing in getting the patient back into a wheelchair. He stated that he was not in more pain, but he was adamant about doing his own transfers and activities for the morning. Today the patient demonstrated severe impulsivity and decreased safety awareness. He was not necessarily listening to directives or one step commands. Activities of daily living: The therapist was able to observe the patient dress as he wanted to get dressed right then after the fall. The patient was trying to walk over to get his shorts, not realizing that his leg was not working well and not realizing that it was buckling on him every time that he stood. The patient did demonstrate the mobility to bend over and put on his shorts with min assist secondary to the immobilizer; however, when standing, the patient needs max assist for balance. The patient was independent with donning shirt after set up. At this point in time, the therapist does not think the patient is in a cognitive state to go over any adaptive equipment. ASSESSMENT: We will wait until the patient's leg is working better to assess ADLs further. The patient may benefit from further cognitive testing as he demonstrated pretty severe decreased safety awareness, decreased judgment, and decreased overall self awareness of his new surgery and precautions. *Goals will be completed at a later time TREATMENT PLAN: Patient will be seen B.I.D during the week and one time per day over the weekend as an inpatient to address the above goals and objectives. INITIAL TREATMENT: Treatment today consisted of the initial evaluation followed by the patient sitting in chair completing dressing tasks. When standing the patient needed max assist. We tried to calm and verbally cue the patient one step at a time; however, the patient had difficulty listening and following directives. MAXIMILIAN
--- NOTE | 2016-06-20 17:01 | ORTHO.PROG ---
Last Taken Vital Signs: Vital Signs - Last Taken Temperature 97.6 F 06/20/16 13:00 Pulse Rate 104 H 06/20/16 13:00 Respiratory Rate 20 06/20/16 13:00 Blood Pressure 147/80 06/20/16 13:00 Pulse Ox 95 06/20/16 13:00 Subjective: Patient was wanting to know when he could go home but he still has not done stairs and has great difficulty mobilizing out of bed and from a chair Objective: Dressing is clean and dry motor and sensory exam is nonfocal, no evidence of significant discomfort along the calf popliteal region or adductor hiatus or thigh. Laboratory Results 06/20/16 Range/Units 06:45 WBC 6.10 (4.8-10.8) 10^3/uL RBC 3.37 L (4.70-6.10) 10^6/uL Hgb 10.1 L (14.0-18.0) g/dL Hct 31.3 L (42.0-52.0) % MCV 92.9 H (80-90) FL MCH 30.0 (27-31) PG MCHC 32.3 L (33-37) g/dL RDW Std Deviation 48.1 (39-50) fL RDW Coeff of Susan 14.8 H (11.5-14.5) % Plt Count 135 L (140-350) 10*3/uL MPV 11.3 (7.4-12.2) FL Sodium 134 L (135-145) meq/L Potassium 3.8 (3.8-5.2) meq/L Chloride 104 (98-112) meq/L Carbon Dioxide 25 (23-33) meq/L Anion Gap 5 (5-20) BUN 18 (7-22) mg/dL Creatinine 1.0 (0.70-1.50) mg/dL Estimated GFR (>60 ml/min/1.73m(2)) BUN/Creatinine Ratio 18.00 (6-20) Glucose 94 (78-110) mg/dL Calculated Osmolality 279.0 (267-292) mOsm/kg Calcium 8.3 L (8.7-10.7) mg/dL Vital Signs (24 hrs) Temp Pulse Resp BP Pulse Ox 06/20/16 13:00 97.6 F 104 H 20 147/80 95 06/20/16 09:00 97.8 F 110 H 18 100/54 96 06/20/16 07:38 86 06/20/16 05:19 93 06/20/16 04:53 97.8 F 86 20 117/42 96 06/19/16 20:04 98.6 F 96 22 148/77 93 06/19/16 19:00 96 Assessment: Left total knee replacement overall doing well but very slow to mobilize and needs continued physical therapy and occupational therapy. Plan: Continue with physical therapy and occupational therapy DVT prophylaxis Pain control
--- NOTE | 2016-06-20 17:11 | OT.PROG ---
Progress Note Progress Note: S: pt stated he already had his meds and breakfast. O: pt was seen in the a.m. and completed bed mobility with mod I as it took him a long time to complete. He needed mod A to complete sit to stand and completed transfer with CGA approx 4 ft to w/c. He was unstable during transfer and needed cues to complete safely. Once in w/c we transferred downstairs completing one more transfer to EOB and needed MIn A with bed mobility. A: pt would continue to benefit from therapy to work on strength and functional transfer. He is still very unsafe during all transfers and needs cues to complete simple motor tasks. Pt would benefit from 24hr care upon d/c whether that is [facility] or at home. P: continue per plan of care.
--- NOTE | 2016-06-20 17:15 | OT.PROG ---
Progress Note Progress Note: S: pt reported that he had lunch already and taken meds. O: pt was seen in the afternoon. Upon completing MOd I bed mobility pt need to change LE garments due to being soiled with urine. Pt needed Max A with all LE dressing donning and doffing. Pt was transferred downstairs in W/c. A: pt appears to be unaware of safety precautions and needs vc's to plan motor tasks such as sit to stands. P:continue per plan of care.
[2016-06-20] MEDS: TAMSULOSIN 0.4 MG CAPSULE PO SCH ×2 (17:49→21:39)
--- NOTE | 2016-06-20 19:38 | PDOC(PROG) ---
Date and Time of Service: 06/12/2016, 1935 Interval History: Patient seen and evaluated earlier. Had some crackles and I got a chest x-ray and it was negative for pneumonia. I discussed with his daughter in depth. No complaints of chest pain or shortness breath. States knee pain is present but seems controlled. Objective : Data - Labs CBC and BMP: 06/20/16 06:45 06/20/16 06:45 Labs - Last 24 Hours: Laboratory Results 06/20/16 Range/Units 06:45 WBC 6.10 (4.8-10.8) 10^3/uL RBC 3.37 L (4.70-6.10) 10^6/uL Hgb 10.1 L (14.0-18.0) g/dL Hct 31.3 L (42.0-52.0) % MCV 92.9 H (80-90) FL MCH 30.0 (27-31) PG MCHC 32.3 L (33-37) g/dL RDW Std Deviation 48.1 (39-50) fL RDW Coeff of Susan 14.8 H (11.5-14.5) % Plt Count 135 L (140-350) 10*3/uL MPV 11.3 (7.4-12.2) FL Sodium 134 L (135-145) meq/L Potassium 3.8 (3.8-5.2) meq/L Chloride 104 (98-112) meq/L Carbon Dioxide 25 (23-33) meq/L Anion Gap 5 (5-20) BUN 18 (7-22) mg/dL Creatinine 1.0 (0.70-1.50) mg/dL Estimated GFR (>60 ml/min/1.73m(2)) BUN/Creatinine Ratio 18.00 (6-20) Glucose 94 (78-110) mg/dL Calculated Osmolality 279.0 (267-292) mOsm/kg Calcium 8.3 L (8.7-10.7) mg/dL Objective : Exam - General General Appearance: No Acute Distress, Cooperative Additional General Exam Details: Vital Signs - Last Taken Temperature 97.1 F 06/20/16 17:00 Pulse Rate 119 H 06/20/16 17:00 Respiratory Rate 20 06/20/16 17:00 Blood Pressure 165/61 06/20/16 17:00 Pulse Ox 97 06/20/16 17:00 - Eye Eye Exam: No Scleral Icterus - Respiratory Respiratory Exam: Clear to Auscultation - Bilaterally, Crackles - Cardiovascular Cardiovascular Exam: RRR, No Murmur, No Clicks, No Gallops, No Rubs, No JVD - GI/Abdominal GI/Abdominal Exam: Normal Bowel Sounds, Non Tender, Non Distended, Soft - Extremities Extremities Exam: No Clubbing Present, No Edema Present, No Cyanosis Present - Neurological Neurological Exam: Alert, No Facial Droop, Speech Intact / Clear Assessment and Plan - Patient Problems (1) Diabetes mellitus type II, controlled Current Visit: Yes Status: Acute Qualifiers: Diabetes mellitus complication status: without complication Diabetes mellitus retirement insulin use: without retirement use Qualified Description : Controlled type 2 diabetes mellitus without complication, without long-term current use of insulin Qualifier Code(s): (E11.9) Type 2 diabetes mellitus without complications (2) Delirium Current Visit: Yes Status: Acute Comment: Improving, but I think the patient has underlying dementia. (3) Hypertension Current Visit: Yes Status: Acute Qualifiers: Hypertension type: essential hypertension Qualified Description: Essential hypertension Qualifier Code(s): (I10) Essential (primary) hypertension (4) Hypercholesterolemia Current Visit: Yes Status: Chronic (5) Macrocytic anemia Current Visit: Yes Status: Acute (6) History of gastric ulcer Current Visit: Yes Status: Acute (7) Status post left knee replacement Current Visit: Yes Status: Acute (8) Dementia Current Visit: Yes Status: Acute Qualifiers: Dementia type: Alzheimer's disease Alzheimer's disease onset: late- onset Dementia behavioral disturbance: without behavioral disturbance Qualified Description: Late onset Alzheimer's disease without behavioral disturbance Qualifier Code(s): (G30.1) Alzheimer's disease with late onset , (F02.80) Dementia in other diseases classified elsewhere without behavioral disturbance - Assessment / Plan Additional Assessment/Plan Details: Seroquel differently is helping control the delirium, and I may be able to lower the dose of that over the next couple of nights here. Chest x-ray was negative for pneumonia, I discussed this with patient's daughter. We plan to admit the patient to swing bed tomorrow, the patient is not really in a capacity to make that decision for himself and his daughters have assisted with that. H stay, the patient states that he'll stay another night for physical therapy and occupational therapy which I think is a good idea. Hopefully we can do a swing bed tomorrow. Pain control PT and OT DVT prophylaxis Continue same management for hypertension and diabetes. We plan to try and get a big sheets with goals listed so that the patient can see you directly to try and reorient him so he knows what goals he needs to reach to go home. Photo / Body Diagrams - Uploaded Photos Uploaded Photos:
[2016-06-20] MEDS ORDERED: QUEtiapine Tab 100 MG TAB PO SCH (19:39)
[2016-06-20] MEDS ORDERED: QUEtiapine Tab 25 MG TAB PO SCH (21:00)
[2016-06-21] MEDS: HYDROcodone-APAP 5 MG -325 MG TABLET PO PRN (01:56)
[2016-06-21] MEDS: LEVOTHYROXINE 100 MCG TABLET PO SCH (06:13)
[2016-06-21] MEDS: OMEPRAZOLE 20 MG CAPSULE PO SCH ×2 (06:36→12:03)
[2016-06-21] MEDS: Insulin Lispro Flexpen 300 UNIT/3 ML INSULN.PEN SUBCUT SCH ×2 (07:35→11:15)
[2016-06-21 08:43] VITALS: RESP 16
[2016-06-21] MEDS: ENOXAPARIN SODIUM 30 MG/0.3 ML SYRINGE SUBCUT SCH (09:13)
[2016-06-21] MEDS: ASPIRIN EC 81 MG TABLET PO SCH (09:13)
[2016-06-21] MEDS: DOCUSATE 100 MG CAPSULE PO SCH (09:13)
[2016-06-21] MEDS: LOSARTAN 50 MG TABLET PO SCH (09:13)
[2016-06-21] MEDS: LORATADINE 10 MG TABLET PO SCH (09:13)
[2016-06-21 12:18] VITALS: TEMP 97.3
--- NOTE | 2016-06-21 13:49 | DCSUMMARY ---
Hospitalization Summary Admit Date: 06/17/16 Discharge Date: 06/21/16 Primary Diagnosis:: left knee replacement Secondary Diagnosis:: Delirium on dementia Hospital Course: This is an 89-year-old male that presented here for left knee replacement after several years of left knee pain that did not respond to conservative medical therapy. He opted for a knee replacement as he had had the right one done in the past and did very well with that. He did well with surgery, but postoperatively, developed delirium and I suspect he has underlying dementia. When to stop several medications, pain medications, and trial Seroquel at nighttime to help regulate sleep-wake cycle as well as to calm down agitation in the setting of his dementia. This seemed to work effectively. Her biggest bottle was whether or not to go to the swing bed. Overall I do not think the patient can make that decision due to his underlying dementia, and his daughters were in agreement that he should continue to stay here for therapy. The patient tells me today that he is actually willing to do the swing bed and stay at least "one more night". He's told me he'll stay one more night for the last several nights now. His progression with therapy has been slow. However he has made some small gains. In terms of his diabetes, his blood sugars remained well controlled. In terms of DVT prophylaxis, he has been on Lovenox. In terms of hypertension and his blood pressures well controlled. Due to the mental status changes, I have stopped simvastatin due to its association with cognitive impairments. Today, no completes of chest pain or shortness breath. Patient states his left knee is sore but he was very happy to get the immobilizer off. He is willing to stay as mentioned. Assessment and Plan: 1. As per discharge assessments noted 2. Disposition: Patient is discharged to the swing bed. 3. Condition on discharge, stable and improved. 4. Diet: regular diet 5. Activities: resume normal activities, continue PT and OT 6. Follow-Up: 1. [facility] will continue to follow the patient on swing bed. 2. 7. Medications at the Time of Discharge: Home Medications Medication Instructions Recorded Confirmed Type Aspirin [Aspir 81] 1 tab PO QD tab 06/20/15 06/17/16 History Losartan Potassium 1 tab PO DAILY tab 06/20/15 06/17/16 History Omeprazole 2 cap PO AC #0 cap 05/05/16 06/17/16 Clinic Tamsulosin HCl 1 cap PO BID #0 cap 05/05/16 06/17/16 Clinic Levothyroxine Sodium 1 tab PO DAILY tab 06/11/16 06/17/16 History Docusate Sodium [Colace] 100 mg PO BID cap 06/21/16 Rx Enoxaparin Inj [Lovenox Inj] 30 mg SUBCUT DAILY syringe 06/21/16 Rx QUEtiapine Tab [SEROquel Tab] 25 mg PO BEDTIME tab 06/21/16 Rx 8. Time, care, counseling and coordination of care for this discharge is less than 30 minutes. Exam - Vitals Vital Signs: Vital Signs Vital Signs - Last Taken Temperature 97.3 F 06/21/16 12:14 Pulse Rate 63 06/21/16 12:14 Respiratory Rate 16 06/21/16 12:14 Blood Pressure 114/68 06/21/16 12:14 Pulse Ox 90 06/21/16 12:14 On room air - General General Appearance: POSITIVE: No Acute Distress, Cooperative - Head Head Exam: POSITIVE: Normal Inspection, Normocephalic, Atraumatic - Eye Eye Exam: POSITIVE: No Scleral Icterus - Respiratory Respiratory Exam: POSITIVE: Clear to Auscultation - Bilaterally, Breathing Non Labored - Cardiovascular Cardiovascular Exam: POSITIVE: RRR, No Murmur, No Clicks, No Gallops, No Rubs, No JVD - GI/Abdominal GI/Abdominal Exam: POSITIVE: Normal Bowel Sounds, Non Tender, Non Distended, Soft - Extremities Extremities Exam: POSITIVE: No Clubbing Present, No Cyanosis Present, Joint Swelling (Some swelling around the left knee, but reduced overall through the hospital stay.) - Neurological Neurological Exam: POSITIVE: Alert, No Facial Droop, Speech Intact / Clear Data Perinent Studies: Laboratory Results 06/18/16 06/19/16 06/20/16 Range/Units 04:00 07:30 06:45 WBC 6.33 7.28 6.10 (4.8-10.8) 10^3/uL RBC 3.69 L 3.51 L 3.37 L (4.70-6.10) 10^6/uL Hgb 10.9 L 10.4 L 10.1 L (14.0-18.0) g/dL Hct 34.2 L 32.7 L 31.3 L (42.0-52.0) % MCV 92.7 H 93.2 H 92.9 H (80-90) FL MCH 29.5 29.6 30.0 (27-31) PG MCHC 31.9 L 31.8 L 32.3 L (33-37) g/dL RDW Std Deviation 48.0 48.6 48.1 (39-50) fL RDW Coeff of Susan 14.6 H 14.9 H 14.8 H (11.5-14.5) % Plt Count 161 137 L 135 L (140-350) 10*3/uL MPV 11.4 11.2 11.3 (7.4-12.2) FL Sodium 137 135 134 L (135-145) meq/L Potassium 4.6 4.3 3.8 (3.8-5.2) meq/L Chloride 104 103 104 (98-112) meq/L Carbon Dioxide 26 25 25 (23-33) meq/L Anion Gap 7 7 5 (5-20) BUN 20 19 18 (7-22) mg/dL Creatinine 1.0 1.0 1.0 (0.70-1.50) mg/dL Estimated GFR (>60 ml/min/1.73m(2)) BUN/Creatinine Ratio 20.00 19.00 18.00 (6-20) Glucose 109 103 94 (78-110) mg/dL Calculated Osmolality 287.0 281.0 279.0 (267-292) mOsm/kg Calcium 8.6 L 8.1 L 8.3 L (8.7-10.7) mg/dL Vitamin B12 432 (239-931) pg/mL Serum Folate 19.4 (2.76-20.0) NG/ML Procedures: Please see procedure notes by Dr. Barber regarding his knee replacement. Patient Problems - Patient Problem List (1) Status post left knee replacement Current Visit: Yes Status: Acute (2) Diabetes mellitus type II, controlled Current Visit: Yes Status: Acute Qualifiers: Diabetes mellitus complication status: without complication Diabetes mellitus residential insulin use: without long term care administrator use Qualified Description : Controlled type 2 diabetes mellitus without complication, without long-term current use of insulin Qualifier Code(s): (E11.9) Type 2 diabetes mellitus without complications (3) Delirium Current Visit: Yes Status: Acute (4) Hypertension Current Visit: Yes Status: Acute Qualifiers: Hypertension type: essential hypertension Qualified Description: Essential hypertension Qualifier Code(s): (I10) Essential (primary) hypertension (5) Hypercholesterolemia Current Visit: Yes Status: Chronic (6) Macrocytic anemia Current Visit: Yes Status: Acute (7) History of gastric ulcer Current Visit: Yes Status: Acute (8) Dementia Current Visit: Yes Status: Acute Qualifiers: Dementia type: Alzheimer's disease Alzheimer's disease onset: late- onset Dementia behavioral disturbance: without behavioral disturbance Qualified Description: Late onset Alzheimer's disease without behavioral disturbance Qualifier Code(s): (G30.1) Alzheimer's disease with late onset , (F02.81) Dementia in other diseases classified elsewhere with behavioral disturbance
--- NOTE | 2016-06-21 13:55 | ORTHO.PROG ---
Last Taken Vital Signs: Vital Signs - Last Taken Temperature 97.3 F 06/21/16 12:14 Pulse Rate 63 06/21/16 12:14 Respiratory Rate 16 06/21/16 12:14 Blood Pressure 114/68 06/21/16 12:14 Pulse Ox 90 06/21/16 12:14 Subjective: Patient notes his pain is well-controlled with oral medications of the left knee Objective: Dressing was removed and incision is clean and dry by report we left the Silverlon dressing in place which seemed to be in normal position with no active issues. Very minimal swelling to the knee could not do a straight leg raise secondary to pain but could slide it and straighten the heel with the foot on the floor. Motor and sensory exam is intact of the foot and ankle. Vital Signs (24 hrs) Temp Pulse Resp BP Pulse Ox 06/21/16 12:14 97.3 F 63 16 114/68 90 06/21/16 08:42 98.0 F 102 H 16 116/66 93 06/21/16 05:28 93 06/21/16 04:12 98.6 F 107 H 20 128/79 92 06/21/16 00:10 97.4 F 108 H 20 152/78 90 06/20/16 21:00 97.6 F 100 20 187/87 95 06/20/16 19:00 107 H 06/20/16 17:00 97.1 F 119 H 20 165/61 97 Intake and Output - 8hrs 06/20/16 06/20/16 06/21/16 06/21/16 13:59 21:59 05:59 13:59 Intake: Intake Oral Amount 475 240 240 Output: Output, Urine Amount 386 085 6144 550 Other: Percent Meal Consumed 75% 50% 50% Output,Number of Bowel 1 Movements Weight 74.117 kg 70.851 kg Weight Measurement Method Standing Scale Standing Scale Patient at times seems a little confused initially during our encounter he was quite appropriate answering appropriate questions and then towards the end of our conversation talked about driving tomorrow and going [facility]. Patient Ulisses today was Thursday in a where he was inpatient new tomorrow was Thursday but confused on situation. Assessment: Left total knee replacement Dementia/cognitive changes Plan: At the current time patient will continue with physical therapy and occupational therapy. Pain control with medication as needed constant reminders of place situation time, etc. continue with deep vein thromboses prophylaxis
--- NOTE | 2016-06-22 11:49 | PT.PROG ---
Progress Note Progress Note: S: Pt. c/o pain in knee. States he cant walk far. O: Treatment consisted of transporting patient down to the clinic where he received moist heat to knee followed by micro massage. He then performed qs, hs , slr, saq, hip abd/add, laq ,marches, and box step ups with #2 box x 5. He did walk in the clinic today from mat table to bath room approx 20 feet x 1 and sit to stands x 5. He was then transported back to his room and placed in belen chair with call light, tabs alarms and nursing notified. A: Pt. does require max verbal cueing to participate in walking activities. His knee immobilizer was removed for ambulating and patient tolerated this very well. He is lacking knee extension. He would benefit from continued skilled therapeutic intervention to address deficits. P: Continue per POC to increase strength and activity tolerance. Dulce Weston, MARBLE MASON
--- NOTE | 2016-06-23 11:14 | PT PM DAY ---
Diagnosis : Left Total Knee Arthroplasty PM - Physical Therapy S: The patient states his pain is a 6 or 7/10 on the verbal analog scale (0 =no pain, 10=worst pain). O: The patient ambulated approximately 30-40 feet before being placed in a wheelchair and being brought to the therapy department where he received an application of moist heat pack to the left knee. We worked on transfers, open chain activities including heel slides, quad sets, and short arc quads, which he was independent in without resistance. He did straight leg raises with minimal assistance and hip abduction with minimal assistance. We kept him within his 0 to 60 degree precautions. We did have him in his knee immobilizer during ambulation and he did transfer about 8 times with stand by assist of one and verbal cueing. He then ambulated approximately 40 feet with use of a walker and stand by assist of one; he fatigued quite easily. A: The patient is going to be going home with his daughter. There is one step into the house. He will have 24-hour assistance for at least two weeks. We will try to attempt some stairs tomorrow and hopefully his overall ambulation distance improves. P: Continue seeing patient BID during the week and one time per day over the weekend for transfers, ambulation, and range of motion/strengthening exercises. MTDD
== END 2016-06-21 14:16 | disposition swing bed (61) | DRG 470 ==
LOC: OPS 05:49 → MED/SURG 12:38
PROVIDERS: ADMIT Orthopaedic Surgery; ATTEND Orthopaedic Surgery
PROC: 0SRD0J9 Replacement of Left Knee Joint with Synthetic Substitute, Cemented, Open Approach (ICD-10-PCS; principal; 2016-06-17 08:00)
DX: M17.12 Unilateral primary osteoarthritis, left knee (principal); F05 Delirium due to known physiological condition; F03.90 Unspecified dementia, unspecified severity, without behavioral disturbance, psychotic disturbance, mood disturbance, and anxiety; E11.9 Type 2 diabetes mellitus without complications; I10 Essential (primary) hypertension; E78.00 Pure hypercholesterolemia, unspecified; D53.9 Nutritional anemia, unspecified
CPT/HCPCS: 36415; 71010; 73560; 80048; 82607; 82746; 82948; 85027; 94150; 94761; 97010; 97110; 97116; 97124; 97161; 97166; 97530; 97535; A4216; J0690; J1580; J1630; J1644; J1650; J1885; J2250; J2270; J2405; J3010; J7030; J7040; J7050; J7120; S0020

== ENCOUNTER 2016-06-21 12:31 | Inpatient (IN) | payer OTHER ==
--- NOTE | 2016-06-21 13:55 | PDOC(PROG) ---
Date and Time of Service: 06/21/2016, 1354 Interval History: Patient now transferred over to the swing bed. In terms of his delirium, it significantly better and are plan is to stop Seroquel hopefully sometime in this next week or just prior to discharge home from the swing bed. In terms of DVT prophylaxis, I've written for Lovenox through July 01 which be 14 days post knee surgery, and we can stop it after that. In terms of the patient's diabetes, his diabetes is appeared well controlled, and I have him on a regular diet to ensure good caloric intake. Continue PT and OT. The patient is amenable to staying "one more day" and he continues to say this each day over the last several days of his hospital stay to continue to do PT and OT. I think his mental status is improving to some degree, but he definitely has shows signs of moderate dementia. Objective : Exam - General General Appearance: No Acute Distress, Cooperative - Head Head Exam: Atraumatic - Eye Eye Exam: No Scleral Icterus - Respiratory Respiratory Exam: Clear to Auscultation - Bilaterally, Breathing Non Labored - Cardiovascular Cardiovascular Exam: RRR, No Murmur, No Clicks, No Gallops, No Rubs, No JVD - GI/Abdominal GI/Abdominal Exam: Normal Bowel Sounds, Non Tender, Non Distended, Soft - Extremities Extremities Exam: No Clubbing Present, No Edema Present, No Cyanosis Present, Joint Swelling (Left knee swelling, but expected. Has improved over the last 5 days) - Neurological Neurological Exam: Alert, No Facial Droop, Speech Intact / Clear Assessment and Plan - Patient Problems (1) Weakness Status: Acute (2) Status post left knee replacement Status: Acute (3) Delirium Status: Acute (4) Dementia Status: Acute Qualifiers: Dementia type: Alzheimer's disease Alzheimer's disease onset: late- onset Dementia behavioral disturbance: without behavioral disturbance Qualified Description: Late onset Alzheimer's disease without behavioral disturbance Qualifier Code(s): (G30.1) Alzheimer's disease with late onset , (F02.80) Dementia in other diseases classified elsewhere without behavioral disturbance (5) Diabetes mellitus type II, controlled Status: Acute Qualifiers: Diabetes mellitus complication status: without complication 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 Continue DVT prophylaxis/PT and OT/eliminate medication such as cholesterol medications. In terms of dementia, again continue Seroquel to help with delirium issues, but as this improves more and more hopefully stop prior to discharge. Do not continue this is a long-term medication. Patient was on low-dose glyburide, this loses its effectiveness after 2 years, so I'll stop that medication at this time. Hospital service and orthopedic service will continue to follow the patient. Try to keep the patient here for continued therapy for at least the next week to 2 weeks in order to strengthen him and reduce his risk of fall at home. Photo / Body Diagrams - Uploaded Photos Uploaded Photos:
[2016-06-21] MEDS: TAMSULOSIN 0.4 MG CAPSULE PO SCH (20:39)
[2016-06-21] MEDS: QUEtiapine Tab 25 MG TAB PO SCH (20:39)
[2016-06-21] MEDS: DOCUSATE 100 MG CAPSULE PO SCH (20:39)
[2016-06-21] MEDS: ACETAMINOPHEN 325 MG TABLET PO PRN (21:11)
[2016-06-22] MEDS: LEVOTHYROXINE 100 MCG TABLET PO SCH (05:57)
[2016-06-22] MEDS: OMEPRAZOLE 20 MG CAPSULE PO SCH ×2 (07:31→12:42)
[2016-06-22] MEDS: ENOXAPARIN SODIUM 30 MG/0.3 ML SYRINGE SUBCUT SCH (09:13)
[2016-06-22] MEDS: TAMSULOSIN 0.4 MG CAPSULE PO SCH ×2 (09:14→20:42)
[2016-06-22] MEDS: ASPIRIN EC 81 MG TABLET PO SCH (09:14)
[2016-06-22] MEDS: LOSARTAN 50 MG TABLET PO SCH (09:14)
[2016-06-22] MEDS: DOCUSATE 100 MG CAPSULE PO SCH ×2 (09:14→20:42)
[2016-06-22] MEDS: ACETAMINOPHEN 325 MG TABLET PO PRN ×2 (12:42→21:10)
[2016-06-22] MEDS: QUEtiapine Tab 25 MG TAB PO SCH (20:42)
[2016-06-23] MEDS: LEVOTHYROXINE 100 MCG TABLET PO SCH (05:07)
[2016-06-23] MEDS: ASPIRIN EC 81 MG TABLET PO SCH (08:56)
[2016-06-23] MEDS: OMEPRAZOLE 20 MG CAPSULE PO SCH ×2 (08:56→11:23)
[2016-06-23] MEDS: ENOXAPARIN SODIUM 30 MG/0.3 ML SYRINGE SUBCUT SCH (08:56)
[2016-06-23] MEDS: LOSARTAN 50 MG TABLET PO SCH (08:56)
[2016-06-23] MEDS: DOCUSATE 100 MG CAPSULE PO SCH ×2 (08:56→21:18)
[2016-06-23] MEDS: TAMSULOSIN 0.4 MG CAPSULE PO SCH ×2 (08:56→21:18)
[2016-06-23] MEDS: ACETAMINOPHEN 325 MG TABLET PO PRN ×2 (11:47→21:51)
--- NOTE | 2016-06-23 15:45 | PTI REPORT ---
Thank you for the referral of Julio César Machuca. He was seen on 06/22/16 for a swingbed evaluation secondary to a left total knee arthroplasty. SUBJECTIVE: The patient is an 89-year-old male. The patient feels like he is walking much better without the use of the IROM on his left lower extremity. He states his goal is to get home as soon as possible. PAST MEDICAL HISTORY: Past medical history can be found in the patient's medical record. OBJECTIVE FINDINGS: Pain: During today's treatment the patient reported a pain level at its highest at a 7/10 on the verbal analog scale (0=no pain, 10=worst pain); however, he had recently had pain medication. Incision: His surgical incision was inspected and looks clean and well healing with no signs of drainage or infection with Grade II edema around the joint line. Strength: Formal strength testing was unable to be tested; however, he does have 3/5 muscle tolerance in the supine position but is unable to perform an independent straight leg raise at this time. Range of motion: His range of motion in the CPM is still [address] Barber's orders; however, down in therapy he is able to tolerate 0 degrees of passive extension to 95 degrees of flexion. Ambulation: The patient is able to ambulate with the use of walker and contact guard assistance as well as constant verbal cues for safety awareness, keeping his feet within the walker. He is able to ambulate up to 25 feet with weight- bearing as tolerated. ASSESSMENT: Problem List: Pain n the left knee Decreased passive and active range of motion in the left knee Decreased strength in the left knee Short-Term Goals: To be met by discharge from swingbed: Patient will be able to transfer from bed to stand independently. Patient will be able to ambulate 100 feet with walker, weight-bearing as tolerated. Patient will be able to ascend and descend five stairs with walker, weight- bearing as tolerated. Long-Term Goals: To be met following discharge from swingbed: Patient will be seen by outpatient physical therapy. TREATMENT PLAN: Patient will be seen B.I.D during the week and one time per day over the weekend as a swingbed patient to address the above goals and objectives. INITIAL TREATMENT: Treatment today consisted of the swingbed evaluation followed by an application of moist heat pack x20 minutes to his left knee followed by micro-current massage with an appropriate dressing put in place over the bandage. He performed therapeutic exercises and functional activities including quad sets, heel slides, straight leg raises, short arc quads, hip abduction/adduction, long arc quads, sit to stands, box step ups, and ambulating 10 feet x4 with mod to max assist, primarily for verbal encouragement to participate as well as for staying within the walker. Following today's treatment the patient received verbal education on the importance of staying within his walker for safety concerns. MAXIMILIAN
[2016-06-23] MEDS: QUEtiapine Tab 25 MG TAB PO SCH (21:18)
[2016-06-23] MEDS: GUAIFENESIN 600 MG TABLET PO PRN (21:51)
[2016-06-24] MEDS: ACETAMINOPHEN 325 MG TABLET PO PRN ×2 (03:31→20:19)
[2016-06-24] MEDS: LEVOTHYROXINE 100 MCG TABLET PO SCH (05:03)
[2016-06-24] MEDS: OMEPRAZOLE 20 MG CAPSULE PO SCH (07:12)
--- NOTE | 2016-06-24 08:13 | PDOC(PROG) ---
Date and Time of Service: 06/24/2016 8:13 AM Interval History: Subjective Patient was sitting in the chair does not appear in distress, he said he had some pain at times in his left knee but otherwise denying other symptoms. There is no chest pain no shortness of breath. Objective : Exam - General General Appearance: No Acute Distress, Cooperative - Head Head Exam: Normal Inspection, Atraumatic - Eye Eye Exam: Normal Appearance - ENT ENT Exam: Normal Exam - Neck Neck Exam: Normal Inspection - Respiratory Respiratory Exam: Clear to Auscultation - Bilaterally - Cardiovascular Cardiovascular Exam: RRR - GI/Abdominal GI/Abdominal Exam: Normal Bowel Sounds, Non Tender, Non Distended, Soft - Rectal Rectal Exam: Deferred - External Exam: Deferred - Extremities Additional Extremities Exam Details: Some edema in the left leg. - Back Back Exam: Normal Inspection - Neurological Neurological Exam: Alert, Oriented x 3, CN II-XII Intact, Moves All Extremities Equally - Psychiatric Psychiatric Exam: Normal Affect Assessment and Plan - Patient Problems (1) Status post left knee replacement Current Visit: No Status: Acute Comment: Continue PT and OT. Apparently he had some delirium postsurgery and he seems to be much improved. He knows he is in [place], he told me he thought that he was in [place] when he was confused for 2 days. He knows the day and the month. He lives in [place], he told me he lost his of 60 years back in August. His daughter intend to stay with him until he recovers. (2) Hypertension Current Visit: No Status: Acute Comment: Same medications Qualifiers: Hypertension type: essential hypertension Qualified Description: Essential hypertension Qualifier Code(s): (I10) Essential (primary) hypertension (3) Hypothyroidism Current Visit: Yes Status: Acute Comment: Same med Photo / Body Diagrams - Uploaded Photos Uploaded Photos:
[2016-06-24] MEDS: ASPIRIN EC 81 MG TABLET PO SCH (09:00)
[2016-06-24] MEDS: DOCUSATE 100 MG CAPSULE PO SCH ×2 (09:01→20:20)
[2016-06-24] MEDS: ENOXAPARIN SODIUM 30 MG/0.3 ML SYRINGE SUBCUT SCH (09:01)
[2016-06-24] MEDS: TAMSULOSIN 0.4 MG CAPSULE PO SCH ×2 (09:01→20:20)
[2016-06-24] MEDS: LOSARTAN 50 MG TABLET PO SCH (09:01)
[2016-06-24] MEDS: OMEPRAZOLE 40 MG CAPSULE PO SCH (11:41)
--- NOTE | 2016-06-24 12:44 | PT.PROG ---
Progress Note Progress Note: S. Patient stated that he wants to go home. He reported that he uses a scooter at home and will be using it when he goes home. O. Patient ambulated 20 feet to the wheelchair and was wheeled to the therapy gym where he had heat and micro massage to his knee then performed exercises in the form of; heel slides, quad sets, ankle pumps, short arc quads, seated, marches, long arc quads, heel toe raises all x 10, #2 box step ups, and sit to stands x5. Patient ambulated 60 feet with 3 rest breaks. PROM= 5-95 degrees, Patient was wheeled back to his room where he was left in his chair with alarm and call light. A. Patient tolerated exercises fair this morning, however he continues to be very stubborn and tries to use his right leg to assist his left. Patient continues to be very unsafe during transfers and ambulation. Patient would continue to benefit from skilled therapy at this time. P. Continue POC.
--- NOTE | 2016-06-24 16:28 | PT.PROG ---
Progress Note Progress Note: S. Patient stated that he is sore this afternoon however he would go to therapy. O. Patient was wheeled to the therapy gym where he had heat and performed exercises in the form of; heel slides, quad sets, ankle pumps, short arc quads, straight leg raises, seated marches, long arc quads all x 10. Patient ambulated 20 feet to the restroom then back to the table where he performed sit to stands x 5. Patient then ambulated 20 feet to the wheelchair and was returned to his room where he was left in bed with alarm and call light. A. Patient tolerated exercises fair, he continues to use his right leg during exercise to assist with his left leg. Patient continues to be very impulsive and requires verbal cues to stay on task and perform exercises safely. Patient would continue to benefit from skilled therapy at this time. P. Continue POC.
--- NOTE | 2016-06-24 16:43 | OT.PROG ---
Progress Note Progress Note: S: pt stated he had already had breakfast. He asked for help out of bed several times. O: pt was seen in his room in the a.m. We did not help him transition out of bed and he completed it with MOd Ind. He completed transfer downstairs approx 20 ft before needing to be transferred the rest of way in w/c. He completed transfer downstairs to EOB. He worked on bed mobility, demonstrating ability to complete with MOd Ind. He was left supine with heat on knee. A: pt would continue to benefit from therapy. He was not assisted with bed mobility due to having that as one of his goals he has to achieve before returning home. P: continue to progress with all goals.
[2016-06-24] MEDS: GUAIFENESIN 600 MG TABLET PO PRN (20:20)
[2016-06-24] MEDS: QUEtiapine Tab 25 MG TAB PO SCH (20:20)
[2016-06-25] MEDS: ACETAMINOPHEN 325 MG TABLET PO PRN ×2 (05:00→20:41)
[2016-06-25] MEDS: LEVOTHYROXINE 100 MCG TABLET PO SCH (05:00)
[2016-06-25] MEDS: OMEPRAZOLE 40 MG CAPSULE PO SCH ×2 (07:49→11:20)
[2016-06-25] MEDS: ENOXAPARIN SODIUM 30 MG/0.3 ML SYRINGE SUBCUT SCH (08:59)
[2016-06-25] MEDS: LOSARTAN 50 MG TABLET PO SCH (09:00)
[2016-06-25] MEDS: DOCUSATE 100 MG CAPSULE PO SCH ×2 (09:00→20:41)
[2016-06-25] MEDS: TAMSULOSIN 0.4 MG CAPSULE PO SCH ×2 (09:00→20:41)
[2016-06-25] MEDS: ASPIRIN EC 81 MG TABLET PO SCH (09:00)
--- NOTE | 2016-06-25 12:02 | PDOC(PROG) ---
Date and Time of Service: 06/25/2016 12:13 PM Interval History: Subjective Patient reported some symptoms of a string around his neck he is denying chest pain, no shortness of breath, this is very light feeling. He said this started yesterday although he didn't mention that to me before. Objective : Exam - General General Appearance: No Acute Distress, Cooperative - Head Head Exam: Normal Inspection - Eye Eye Exam: Normal Appearance - ENT ENT Exam: Normal Exam - Neck Neck Exam: Normal Inspection - Respiratory Respiratory Exam: Clear to Auscultation - Bilaterally - Cardiovascular Cardiovascular Exam: RRR - GI/Abdominal GI/Abdominal Exam: Normal Bowel Sounds, Non Tender, Non Distended - Rectal Rectal Exam: Deferred - External Exam: Deferred - Extremities Additional Extremities Exam Details: Mild edema left leg Assessment and Plan - Patient Problems (1) Status post left knee replacement Current Visit: No Status: Acute Comment: Continue PT and OT. Regarding the symptom that he is having in his neck, I told him we can do more testing however he doesn't want to do any tests we decided to watch it. (2) Hypertension Current Visit: No Status: Acute Comment: Same med Qualifiers: Hypertension type: essential hypertension Qualified Description: Essential hypertension Qualifier Code(s): (I10) Essential (primary) hypertension (3) Hypothyroidism Current Visit: Yes Status: Acute Comment: Same med Photo / Body Diagrams - Uploaded Photos Uploaded Photos:
--- NOTE | 2016-06-25 13:58 | PT.PROG ---
Progress Note Progress Note: AM PT note. S: Pt c/o right knee pain and difficulties weight bearing due to knee pain. Pt does not wish to walk this morning due to pain. O: Treatment consisted of: ambulation x 25 feet with max verbal encouragement, CGA x 1 and FWW. Pt received MHP x 20 min to L knee prior to movement. Microcurrent soft tissue mobilization for pain modulation. Pt was instructed in ther ex with 10x each of the following: quad sets, heel slides, SLR, SAQ, hip abd/add, 4 x 30 sec LAQ, 4 way ankle, sit to stands and 5x step ups onto 4 inch box. Following exercises, pt ambulated x 100 feet with max verbal encouragement , CGA x 1, FWW and required 2 rest breaks due to pain. Pt was left in chair with alarm set and call light within reach. A: Requires max verbal encouragement to participate in therapy exercises. Every time patient spots a chair when ambulating, he needs to sit down no matter the distance that he has ambulated - very poor desire to get up and walk and states that he can just use a chair at his house if he wants. Reviewed goals on patient 's board in room to emphasize importance of fully participating in therapy activities. P: Continue per POC to address established goals.
--- NOTE | 2016-06-25 15:08 | OT PM DAY ---
Diagnosis : Left Total Knee Arthroplasty PM - Occupational Therapy S: The patient was in a rather good mood today. He states that he wants to go home; he does miss his coffee buddies. O: The patient performed therapeutic exercises and functional activities including bench press with cane with five pounds x20, seated biceps curls with four pounds x10, wall pulleys with two kilograms in all planes bilaterally x10, and upper body ergometer x4 minutes forward and 4 minutes backward. He wheeled himself in wheelchair and parked in stall very efficiently. The patient then walked to room, approximately 40 feet. The patient transferred into bed with modified independence and was left in bed with call light within reach. A: The patient would continue to benefit from therapy to work on his overall activity tolerance. We will continue to monitor his safety during transitions. P: Continue seeing patient BID during the week and one time per day over the weekend for upper extremity strengthening, ADLs, and overall functional mobility. MAMID
--- NOTE | 2016-06-25 15:33 | OT.PROG ---
Progress Note Progress Note: S: pt is still wanting his toenails trimmed, He always asks for help out of bed and to dontrell socks. O: pt was seen in room in the pm. Therapy would not assist him with bed mobility as it is one of his goals to complete Ind. He eventually completed with MOd Ind. He was unable to dontrell socks Ind. He transferred approx 25 ft before beging transferred the rest of way in w/c. He did complete w/c propulsion Ind approx 60 ft. He completed 6 min on Ue bike to improve overall activity tolerance, transferred approx 30 ft to eob. He completed bed mobility in therapy while hooking non affected side to affected side and completing transfer into bed. He was left on moist heat. A: pt is unable to completed dressing Ind, may benefit from sock aid and stem mounter. He needs to improve on safety during transfers and improve on overall distance of ambulation. P: continue to progress per plan of care.
--- NOTE | 2016-06-25 15:36 | PT.PROG ---
Progress Note Progress Note: PM PT S: Pt states that he feels that his knee pain is getting worse. Denies any calf pain - states that the pain is around the knee joint and into quads. Pt participated in OT prior to PT. O: Pt received MHP x 20 min to L knee prior to start of PT. Pt was instructed in ther ex consisting of 10x each of the following - quad sets, heel slides, SLR , SAQ, hip abd/add, LAQs, sit to stand, step ups onto a 6 inch box. Pt ambulated (CGA x 1 for safety, FWW) x 30 feet before rest break, x 50 feet before rest break, x 25 feet before getting in to w/c - pt demo very poor safety awareness and consistently sits on the edge of chairs or reaches for the closest w/c. Pt was left in chair with alarm set and call light in reach. A: Pt demo very poor safety awareness and is a high fall risk. Pt refuses to walk our goal distance for therapy as he states that he has a motorized w/c at home that he will use. Does well with max verbal encouragement for participating in exercises. P: Per POC to address established goals.
--- NOTE | 2016-06-25 15:37 | PT AM DAY ---
Diagnosis : Left Total Knee Arthroplasty AM - Physical Therapy S: The patient states his knee is very sore and painful today. He does not wish to walk at all. He states that all he is receiving at this time for pain medication is Tylenol. O: The patient ambulated from the chair in his room to wheelchair x10 feet. The patient demonstrated toe touch weight-bearing on the right and is very unsteady this morning as he did have a loss of balance. PT was able to maintain the patient in an upright position to get him over to the wheelchair. The patient was brought down to therapy and placed on moist heat pad x20 minutes for pain modulation. Following heat the patient performed therapeutic exercises including quad sets and heel slides x10 each, straight leg raise with mod assist x1 x5, short arc quads x10 repetitions x2, hip abduction/adduction x5 repetitions x2, glut squeezes x10, and four way ankle exercises with red theraband x10. The patient was able to move from a supine to seated position with assist of one in order to push himself up on the bed. In a seated position the patient was able to perform sit to stand transfers x10. The patient did receive manual therapy in the form of range of motion for knee flexion and extension with Grade I patellar mobilizations. Following manual therapy the patient ambulated from bed to NuStep machine x15 feet. His walker was adjusted before he ambulated to move down a level. The patient was able to ambulate with a better gait pattern and also more safely. He still demonstrated decreased weight-bearing on that right side and had difficulties with extension. The patient performed NuStep activity x5 minutes before he participated with occupational therapy activities. A: The patient did fair with treatment. He does better once he receives the heat to his knee and is instructed on the activities. The patient does not like to ambulate as he states that it is too painful and he wants to give his knee time to rest. When there is not a chair in sight the patient is able to ambulate further distances, but as soon as he sees a chair he feels that he needs to sit down. The patient does require assist of one in order to get into and out of bed at this time as he states that he is unable to lift his left lower extremity independently. P: Continue seeing patient BID during the week and one time per day over the weekend for transfers, ambulation, and range of motion/strengthening exercises. MTDD
--- NOTE | 2016-06-25 15:55 | PT PM DAY ---
Diagnosis : Left Total Knee Arthroplasty PM - Physical Therapy S: The patient received moist heat pack x20 minutes prior to start of therapy. The patient states he is doing fair this afternoon. He just complains of continued knee pain. O: Treatment today consisted of the patient performing therapeutic exercises and functional activities including quad sets, heel slides, short arc quads, straight leg raises with min assist x1, and hip abduction/adduction. The patient required assist of one to move from a supine to seated position. In the seated position he performed 10 long arc quads, sit to stand transfers x5 , and box step ups on the #2 box with hand hold assist x2 on walker. The patient then ambulated with contact guard assist x1 for safety and walker from the mat to the NuStep where he performed NuStep activity x10 minutes for general motion. The patient ambulated from therapy room to elevator (75 feet) with two rest breaks with contact guard assist x1 and walker. He was then wheeled up to the third floor where he walked from the elevators to his room ( 25 feet). A: The patient is doing better with therapy activities. He was able to increase repetitions with therapeutic exercise and was able to walk further distance this afternoon. He still is struggling getting into and out of bed as he cannot lift his lower extremity to go from a seated to supine position and does require something to hold onto to move from a supine to seated position. P: Continue seeing patient BID during the week and one time per day over the weekend for transfers, ambulation, and range of motion/strengthening exercises. MTDD
--- NOTE | 2016-06-25 16:42 | ORTHO.PROG ---
Last Taken Vital Signs: Vital Signs - Last Taken Temperature 97.9 F 06/25/16 07:19 Pulse Rate 86 06/25/16 07:19 Respiratory Rate 18 06/25/16 07:19 Blood Pressure 108/65 06/25/16 07:19 Pulse Ox 92 06/25/16 07:19 Subjective: Patient states the left knee hurts worse than it did prior to surgery Objective: Examination shows that the patient has very limited swelling he has just a trace effusion the incision is clean and dry dressing was removed sensory exam of the lower extremity is good he has no distal swelling or edema he has close to full extension and has flexion to about 80. There is no pain in the calf popliteal space adductor hiatus or thigh. Assessment: Patient status post left total knee replacement. Overall think he is doing very well. I think there is some degree of dementia but I think very limited at this point time he has a tendency to be very impulsive with getting up and moving or trying to help him control and educate him to focus on this. We will have him continue with physical therapy and occupational therapy and hopefully we'll to get home within the next week or 2. Plan: As above and assessment.
[2016-06-25] MEDS: QUEtiapine Tab 25 MG TAB PO SCH (20:41)
[2016-06-25] MEDS: GUAIFENESIN 600 MG TABLET PO PRN (20:41)
[2016-06-26] MEDS: LEVOTHYROXINE 100 MCG TABLET PO SCH (04:54)
[2016-06-26] MEDS: ACETAMINOPHEN 325 MG TABLET PO PRN ×3 (04:55→19:20)
[2016-06-26] MEDS: DOCUSATE 100 MG CAPSULE PO SCH ×2 (09:31→21:29)
[2016-06-26] MEDS: LOSARTAN 50 MG TABLET PO SCH (09:32)
[2016-06-26] MEDS: ASPIRIN EC 81 MG TABLET PO SCH (09:32)
[2016-06-26] MEDS: TAMSULOSIN 0.4 MG CAPSULE PO SCH ×2 (09:32→21:30)
[2016-06-26] MEDS: OMEPRAZOLE 40 MG CAPSULE PO SCH ×2 (09:33→12:15)
[2016-06-26] MEDS: ENOXAPARIN SODIUM 30 MG/0.3 ML SYRINGE SUBCUT SCH (09:33)
--- NOTE | 2016-06-26 16:40 | OT.PROG ---
Progress Note Progress Note: S: pt states he is missing his morning coffee with the guys. He states he does have pain in his knee and that it was stiff this morning. O: pt was seen in his room in the a.m. He wanted help to transition from supine to EOB, but was not given as this is one of his goals. He transferred approx 25 ft before needing to sit in w/c. He transferred the rest of way in w/c. Once h arrived to therapy we worked on bed mobility tasks which was done with mOd Ind as it takes him a longer to complete. A: pt still appears to be unaware of safety during transfers as he reaches a lot and runs into objects with walker. He needs to progress with his goals in order to return home. P: continue per plan of care.
--- NOTE | 2016-06-26 16:49 | PT.PROG ---
Progress Note Progress Note: S. Patient stated that he is feeling good today, he reports that his knee is a little sore. O. Patient ambulated 50 feet to the wheelchair and was wheeled to the therapy gym where he had heat and micro massage to his knee then performed exercises in the form of; heel slides, quad sets, ankle pumps, short arc quads, seated, marches, long arc quads, heel toe raises, Straight leg raises all x 10, #1 box step ups, and sit to stands x5. Patient ambulated 80 feet with 3 rest breaks. PROM= 10-92 degrees, Patient was wheeled back to his room where he was left in his chair with alarm and call light. A. Patient tolerated exercises fair this morning, however he continues to be very stubborn and tries to use his right leg to assist his left. Patient continues to be very unsafe during transfers and ambulation. Patient would continue to benefit from skilled therapy at this time. P. Continue POC.
--- NOTE | 2016-06-26 16:53 | PT.PROG ---
Progress Note Progress Note: S. Patient stated that he is tired after this mornings treatment. O. Patient ambulated 100 feet to the wheelchair and was wheeled to the therapy gym where he had heat to his knee then used the nu-step x 10 minutes then performed exercises in the form of; heel slides, quad sets, ankle pumps, short arc quads, seated, marches, long arc quads, heel toe raises, Straight leg raises all x 10, #1 box step ups, and sit to stands x5. Patient ambulated 150 feet to his room where he was left in his bed with call light and alarm. A. Patient tolerated exercises fair, he is able to tolerate more ambulation however continues to be very unsafe during transfers and ambulation. Patient would continue to benefit from skilled therapy at this time. P. Continue POC.
--- NOTE | 2016-06-26 17:03 | OT.PROG ---
Progress Note Progress Note: S: pt reported knee pain this afternoon. O: pt completed transfer downstairs from OT and was set up on heat to elongate muscle fibers. Pt was seen after PT and completed 6 min on UE bike to increase activity tolerance. Pt refused anymore therapy at this point and wanted to return to his room. pt was left in bed with call light with reach and bed alarm on. A: pt is unaware of safety when transferring. Continues to progress towards goals. P: continue per plan of care.
[2016-06-26] MEDS: QUEtiapine Tab 25 MG TAB PO SCH (21:30)
[2016-06-26] MEDS: GUAIFENESIN 600 MG TABLET PO PRN (21:30)
[2016-06-27] MEDS: LEVOTHYROXINE 100 MCG TABLET PO SCH (05:56)
[2016-06-27] MEDS: OMEPRAZOLE 40 MG CAPSULE PO SCH ×2 (07:10→11:25)
[2016-06-27] MEDS: DOCUSATE 100 MG CAPSULE PO SCH ×2 (08:45→20:32)
[2016-06-27] MEDS: GUAIFENESIN 600 MG TABLET PO PRN (08:45)
[2016-06-27] MEDS: ENOXAPARIN SODIUM 30 MG/0.3 ML SYRINGE SUBCUT SCH (08:45)
[2016-06-27] MEDS: TAMSULOSIN 0.4 MG CAPSULE PO SCH ×2 (08:45→20:31)
[2016-06-27] MEDS: ASPIRIN EC 81 MG TABLET PO SCH (08:45)
[2016-06-27] MEDS: LOSARTAN 50 MG TABLET PO SCH (08:45)
--- NOTE | 2016-06-27 11:48 | OT.PROG ---
Progress Note Progress Note: S: pt states he thinks the anesthesia made him forget names and faces. He reports that he doesn't really remember being her the first two days. O: pt was seen in his room in the a.m and completing bed mobility Ind before transferring down to therapy with CGA for safety. Pt completed PT before finishing up with OT. Pt completed exercsies with pulleys with 2 k with BUE in shoulder ext, tricep ext, rows, and bicep flex to increase strength to assist with postural transitions. pt returned to his room taking #0 breaks to room and completing bed mobility Ind. He was left with bed alarm on and chair alarm and call light within reach. A: pt completed two more goals today completing 150 ft walk with 0 breaks and bed mobility. will continue to progress with all goals. P: continue to progress with goals.
--- NOTE | 2016-06-27 11:58 | PT.PROG ---
Progress Note Progress Note: S. Patient stated that he is feeling better this morning. O. OT brought patient to the therapy gym where he had heat and micro to his knee then used the nu-step x 10 minutes then performed exercises in the form of ; heel slides, quad sets, ankle pumps, short arc quads, seated marches, long arc quads, heel toe raises, Straight leg raises all x 10, #1 box step ups, and sit to stands x10. Patient ambulated 150 feet to his room where he was left in his bed with call light and alarm. A. Patient tolerated exercises fair, he is able to tolerate more ambulation however continues to be very unsafe during transfers and ambulation. Patient would continue to benefit from skilled therapy at this time. P. Continue POC.
[2016-06-27] MEDS ORDERED: OMEPRAZOLE 40 MG CAPSULE PO SCH (12:00)
--- NOTE | 2016-06-27 13:20 | OT.PROG ---
Progress Note Progress Note: Progress Note: S. Patient stated that this was the best day that he has had during his hospital stay and that he is ready to meet his goals. O. Patient ambulated from his room to the therapy gym approx 150 ft at a fast pace walk requiring v/c to slow down and negotiate differentiated surface areas. Pt required 2 standing rest breaks during the walk. Pt completed the arm bike 4 min forward and 4 min backward with min-mod resistance. Pt completed shoulder flex/ext, IROT/EROT and internal and external rotation exercises using a 3 lb weight with min pain in right shoulder. A. Patient tolerated exercises good and demod increased motivation, he is able to tolerate more ambulation however continues to be unsafe during transfers and ambulation. Patient would continue to benefit from skilled therapy at this time. P. Continue POC.
--- NOTE | 2016-06-27 16:15 | PT.PROG ---
Progress Note Progress Note: S. Patient stated that he is tired this afternoon however he agreed to go to therapy. O. OT brought patient to the therapy gym where he had heat and micro to his knee then used the nu-step x 5 minutes then performed exercises in the form of; heel slides, quad sets, ankle pumps, short arc quads, seated marches, long arc quads, heel toe raises, Straight leg raises all x 10, #3 box step ups, and sit to stands x10. Patient ambulated 150 feet to his room where he was left in his bed with call light and alarm. A. Patient tolerated exercises fair, He was able to tolerated increase in exercises this afternoon however continues to be very unsafe, Patient continues to require frequent verbal cues to stay on task and safe. Patient would continue to benefit from skilled therapy at this time. P. Continue POC.
--- NOTE | 2016-06-27 16:38 | OTI REPORT ---
Thank you for the referral of Julio César Machuca. He was seen on 06/23/16 for an occupational therapy swingbed evaluation status post left total knee arthroplasty. SUBJECTIVE: The patient is an 89-year-old male who is being seen today secondary to having a left total knee replacement. The patient is from [place] and lives by himself. Prior to admission, the patient stated that he was independent with everything including driving. His daughter states that at times his knee hurt so bad that he would crawl around in the house until he needed to get where he needed to go. Previously as an inpatient there had been some memory and judgment difficulties with this patient. He reports that he wants to go home and be as independent as possible in all areas. PAST MEDICAL HISTORY: Past medical history can be found in the patient's medical record. OBJECTIVE FINDINGS: Range of motion: Actively, the patient has within functional limits in the upper extremities. Strength: Strength in the upper extremities is 4/5 in the bilateral upper extremities. Activities of daily living: After set up the patient was able to dress lower extremities including socks and was able to begin threading pants to the knees; however, when standing, the patient requires min to mod assist for balance. Balance: Because the patient is lacking knee extension and is having difficulty moving the left leg, he is struggling with balance when completing standing tasks. Transfers: The patient tends to be impulsive and his transfers are not safe at this time. The patient requires mod to max verbal cues for safety with functional transfers. He needs cues to use hands to stand up. The patient is able to complete a toilet transfer with min assist. Ambulation: The patient needs cues to slow down when ambulating to and from different chairs or to and from the bed. Cognition: The patient did become frustrated as an inpatient when trying to complete cognitive tests. We may continue with the CPT; however, this patient does tend to refuse those types of things. Earlier as an inpatient, the patient scored in the MILD cognitive impairment range using the MoCa. It has been observed that he is using more concrete thought vs. abstract thought processes in order to complete functional activities and functional transfers. ASSESSMENT: Problem List: Poor safety awareness Poor judgment Decreased range of motion in the knee which is affecting his ability to complete transfers Patient is a HIGH fall risk at this point in time Short-Term Goals: To be met by discharge from swingbed: Patient will be able to obtain clothes from closet, don clothes, and have safe balance when completing last half of lower extremity dressing tasks independently. Patient will improve upper extremity strength to 5/5 to assist with functional transfers for ADLs and functional tasks independently. Patient will be able to complete showering task including showering self and transfer with stand by assist. Patient will demonstrate good safety awareness with all functional tasks. Long-Term Goals: To be met following discharge from swingbed: Patient will return home, demonstrating safety and independence with all functional transfers and ADLs. TREATMENT PLAN: Patient will be seen B.I.D during the week and one time per day over the weekend as a swingbed patient to address the above goals and objectives. INITIAL TREATMENT: Treatment today consisted of the swingbed evaluation followed by the patient being able to dress lower extremities with min assist for balance and max verbal cues to bring pants from knee to waist level. He is independent with dressing upper extremities. The patient is able to don and doff his socks while sitting edge of bed. He did demonstrate impulsivity today and difficulty ambulating on the left lower extremity to complete functional transfers. The patient did complete upper extremity strengthening activities including wall pulleys in all planes and ranges with two kilograms x10 repetitions each followed by upper body ergometer x4 minutes forward and 4 minutes backward. MTDD
[2016-06-27] MEDS: ACETAMINOPHEN 325 MG TABLET PO PRN (20:32)
[2016-06-27] MEDS: QUEtiapine Tab 25 MG TAB PO SCH (20:32)
[2016-06-28] MEDS: ACETAMINOPHEN 325 MG TABLET PO PRN ×2 (05:09→16:13)
[2016-06-28] MEDS: LEVOTHYROXINE 100 MCG TABLET PO SCH (05:09)
[2016-06-28] MEDS: OMEPRAZOLE 40 MG CAPSULE PO SCH (07:32)
[2016-06-28] MEDS: ENOXAPARIN SODIUM 30 MG/0.3 ML SYRINGE SUBCUT SCH (09:06)
[2016-06-28] MEDS: TAMSULOSIN 0.4 MG CAPSULE PO SCH ×2 (09:06→20:20)
[2016-06-28] MEDS: LOSARTAN 50 MG TABLET PO SCH (09:06)
[2016-06-28] MEDS: DOCUSATE 100 MG CAPSULE PO SCH ×2 (09:07→20:21)
[2016-06-28] MEDS: ASPIRIN EC 81 MG TABLET PO SCH (09:07)
--- NOTE | 2016-06-28 11:32 | PT.PROG ---
Progress Note Progress Note: S: pt reports he is agreeable to PT. O: nsg okay'd prior to PT. pt instructed to ambulate with FWW with CGA x 1 down to therapy gym 150 feet. pt instructed in SAQs, LAQs, SLR, hip abd/add x 10. 4 way ankle x 10 RTB, seated marches x 10, 6 inch box step ups x 10 w FWW and CGAx1. instructed to perform 6 mins on nu step for endurance. pt ambulated back to room with CGA x1 and FWW and was left in chair w/ chair alarm activated and call light within reach. A: pt tolerated therapy well today. pt demonstrated improvement in box step ups. P: cont per POC
[2016-06-28] MEDS: QUEtiapine Tab 25 MG TAB PO SCH (20:21)
[2016-06-28] MEDS: GUAIFENESIN 600 MG TABLET PO PRN (20:21)
[2016-06-29] MEDS: ACETAMINOPHEN 325 MG TABLET PO PRN ×3 (01:07→20:13)
[2016-06-29] MEDS: LEVOTHYROXINE 100 MCG TABLET PO SCH (05:32)
[2016-06-29] MEDS: OMEPRAZOLE 40 MG CAPSULE PO SCH (06:48)
[2016-06-29] MEDS: ENOXAPARIN SODIUM 30 MG/0.3 ML SYRINGE SUBCUT SCH (08:19)
[2016-06-29] MEDS: ASPIRIN EC 81 MG TABLET PO SCH (08:19)
[2016-06-29] MEDS: LOSARTAN 50 MG TABLET PO SCH (08:19)
[2016-06-29] MEDS: TAMSULOSIN 0.4 MG CAPSULE PO SCH ×2 (08:19→20:13)
[2016-06-29] MEDS: DOCUSATE 100 MG CAPSULE PO SCH ×2 (08:19→20:13)
--- NOTE | 2016-06-29 12:41 | PT.PROG ---
Progress Note Progress Note: S: pt reports he is agreeable to PT. still in alot of knee pain. O: nsg okay'd prior to PT. pt instructed to ambulate with FWW and decreased gait speed for safety with cGax1. pt very demonstrates very sporadic movement patterns at times. pt instructed in nu step x 10 mins, LLE open chain ex: sLR, SAQ, hip abd/add x 10 w/ 2# weight, quad sets heel slides x 10. ankle pumps. sit to stands x5, box step ups #4 x 10 each LE with walker and CGAx1 for safety. PROM L knee. demo difficulty with extension. instructed to perform heel toe gait pattern/ pt ambulated 150 feet back to room with CGA x 1 and standard walker that was issued to him for home. pt left in chair with chair alarm activated and call light within reach. A: pt tolerated therapy fair, continued concerns about safety at home. pt mobility is improving. continues to lack knee extension. P: cont per POC.
[2016-06-29] MEDS: QUEtiapine Tab 25 MG TAB PO SCH (20:13)
[2016-06-29] MEDS: oxyCODONE-ACETAMINOPHEN 5-325 TAB PO PRN (22:46)
[2016-06-29] MEDS: GUAIFENESIN 600 MG TABLET PO PRN (22:46)
[2016-06-30] MEDS: LEVOTHYROXINE 100 MCG TABLET PO SCH (06:52)
[2016-06-30] MEDS: OMEPRAZOLE 40 MG CAPSULE PO SCH (07:19)
[2016-06-30] MEDS: oxyCODONE-ACETAMINOPHEN 5-325 TAB PO PRN ×2 (08:18→20:28)
[2016-06-30] MEDS: DOCUSATE 100 MG CAPSULE PO SCH ×2 (08:18→20:26)
[2016-06-30] MEDS: ENOXAPARIN SODIUM 30 MG/0.3 ML SYRINGE SUBCUT SCH (08:19)
[2016-06-30] MEDS: TAMSULOSIN 0.4 MG CAPSULE PO SCH ×2 (08:19→20:26)
[2016-06-30] MEDS: LOSARTAN 50 MG TABLET PO SCH (08:19)
[2016-06-30] MEDS: ASPIRIN EC 81 MG TABLET PO SCH (08:19)
--- NOTE | 2016-06-30 10:20 | OT AM DAY ---
Diagnosis : Left Total Knee Arthroplasty AM - Occupational Therapy S: The patient reports he is okay with doing upper extremity strengthening. O: The patient was already dressed when the therapist arrived in the room. We worked on upper extremity strengthening for functional transfers including arm bike forward and backward x4 minutes each and wall pulleys in all planes and ranges with two kilograms. We worked on improving his overall functional reaching x2 minutes; however, he said his left leg was hurting him so we did quit after a two minute time period. A: The patient tolerated today's treatment well. P: Continue seeing patient BID during the week and one time per day over the weekend for upper extremity strengthening, ADLs, and overall functional mobility. MAXIMILIAN
--- NOTE | 2016-06-30 11:11 | OT PM DAY ---
Diagnosis : Left Total Knee Arthroplasty PM - Occupational Therapy S: The patient was in good spirits. He is aware of his new goals and what he has to accomplish to get home. O: The patient was seen in his room. He completed a functional transfer approximately 25 feet and was taken down to therapy for PT. Once in the therapy gym the patient completed bed mobility with modified independence and was left on moist heat for 20 minutes. The patient completed a bathroom transfer with mod independence and completed all toileting independently. A: The patient would continue to benefit from therapy to increase his overall activity tolerance. We will continue to work on goals that are posted in his room so that he may return home. We will monitor his safety during transfers. P: Continue seeing patient BID during the week and one time per day over the weekend for upper extremity strengthening, ADLs, and overall functional mobility. MAMID
[2016-06-30] MEDS: ACETAMINOPHEN 325 MG TABLET PO PRN (12:30)
--- NOTE | 2016-06-30 16:31 | PT.PROG ---
Progress Note Progress Note: S. Patient stated that he is sore this afternoon. O. Patient ambulated 175 feet to the therapy gym where he had heat to his knee then performed exercises in the form of; heel slides, quad sets, ankle pumps, short arc quads, straight leg raises, seated marches, long arc quads, sit to stands all x 10 patient used the nu-step x 10 minutes then ambulated 175 feet back to his room where he was left in bed with alarm and call light. A. Patient tolerated exercises fair today, he was very sore at the beginning of therapy however after movement he reported that he was feeling much better. Patient continues to make gains with strength and mobility however continues to be very impulsive and requires frequent verbal cues to perform tasks safely. P. Continue POC.
--- NOTE | 2016-06-30 17:12 | PT.PROG ---
Progress Note Progress Note: S. Patient stated that he is feeling good today, he reports that his knee is a little sore. O. Patient ambulated 150 feet to the therapy gym where he had heat and micro massage to his knee then performed exercises in the form of; heel slides, quad sets, ankle pumps, short arc quads, seated, marches, long arc quads, heel toe raises, Straight leg raises all x 10, #3 box step ups, and sit to stands x5. Patient ambulated 80 feet with 3 rest breaks. PROM= 10-92 degrees, Patient was wheeled back to his room where he was left in his chair with alarm and call light. A. Patient tolerated exercises fair this morning, however he continues to be very unsafe during transfers and ambulation. Patient would continue to benefit from skilled therapy at this time. P. Continue POC.
--- NOTE | 2016-06-30 17:41 | ORTHO.PROG ---
Last Taken Vital Signs: Vital Signs - Last Taken Temperature 97.8 F 06/30/16 07:00 Pulse Rate 95 06/30/16 07:00 Respiratory Rate 24 06/30/16 07:00 Blood Pressure 119/66 06/30/16 07:00 Pulse Ox 91 06/30/16 07:00 Subjective: Patient with left knee pain and discomfort after total knee replacement. Patient is about 2 weeks out from his surgery. He also has some right shoulder pain where he had an injection about 5 days ago with some relief of symptoms. Objective: Examination shows that his right shoulder motion is pretty much full he has weakness with external rotation and impingement testing he has a mild effusion. I'd say his supraspinatus isolation 3 over 5 strength. Motor and sensory exam is nonfocal. Left knee shows well-healed incision a trace to 1+ effusion flexion to about 85 he lacks full extension by about 10. Motor and sensory exam is nonfocal no redness or erythema no calf, popliteal adductor hiatus or thigh pain. Radiographs show a total knee replacement bone cement cement prosthesis interface generally looks good alignment overall looks good no clear evidence of loosening or other problems at the current time. Assessment: Left total knee replacement overall I think the patient clinically looks very good and should continue to progress well Right shoulder chronic rotator cuff arthropathy. Plan: Patient will continue with pain control medications as needed a really has not been taking any much narcotic medication Percocet intermittently as well as Tylenol. We will send him home with a prescription for pain medication. We have also filled out a blue therapy form for physical therapy down a [place]. We can discontinue his Lovenox since we have 14 days of anticoagulation tomorrow when he will be discharge. And he will follow-up with us in approximately 2 weeks time in [place] or sooner for problems.
--- NOTE | 2016-06-30 18:57 | DCSUMMARY ---
Hospitalization Summary Hospital Course: Final Discharge Diagnosis: Current Visit Problems Problem Status Priority Diagnosed Code Hypothyroidism Acute E03.9 Weakness Acute R53.1 Diagnostic Data, Laboratory Data, and Procedures of Signifigance: History and Physical pertinent to Admission: Hospital Course: Course of Hospitalization: This very nice 89-year-old gentleman who underwent left knee replacement by Dr. Barber. He did well with surgery but postoperatively developed some delirium and most likely the with some underlying dementia according to my colleagues. Was given a trial Seroquel to regulate sleep-wake cycle and this worked effectively at the beginning the patient did not want to go to swing bed for further rehabilitation but the subsequently decided to go to swing bed status for continued rehabilitation since his progression with therapy was slow. He is done pretty well with his therapy the case with the physical therapist which recommended a snf 50 even though the patient had completed all the goals they still feel that he might be a little unsafe I discussed the case with the patient and his daughter he states that he is going home anyway and his daughter is in agreement with this. He also stated that he had some fullness in his throat that was bugging him CT scan of his neck showed some degenerative arthritis in his neck and 50% stenosis on his carotid artery and instructed them to be referred to the primary care physician if he wanted to do anything about this but he said he did not want to do anything. His blood pressure and diabetes remained controlled we will continue usual medication all anticoagulation and physical therapy as per Dr. Barber On the date of discharge, the patient was examined: Gen.: No acute distress, alert, nontoxic Heart: Regular rate and rhythm, no murmurs, clicks, gallops, or rubs Lungs: Clear to auscultation bilaterally, breathing is nonlabored Abdomen/GI: Normal tones on auscultation, soft, nontender, nondistended Musculoskeletal/extremities: No clubbing, cyanosis, or edema Vitals reviewed and are listed below Vital Signs (24 hrs) Temp Pulse Pulse Resp BP Pulse Ox 07/01/16 07:00 98.2 F 90 18 111/63 92 06/30/16 19:00 97.8 F 80 91 20 109/71 94 Assessment and Plan: 1. As per discharge assessments above 2. Disposition: Home 3. Condition on discharge, stable and improved. 4. Diet: regular diet 5. Activities: resume normal activities 6. Follow-Up: Dr. Barber and primary care physician as needed 1. PCP 2. 7. Medications at the Time of Discharge: Home Medications Medication Instructions Recorded Confirmed Type Aspirin [Aspir 81] 1 tab PO QD tab 06/20/15 06/25/16 History Losartan Potassium 1 tab PO DAILY tab 06/20/15 06/25/16 History Omeprazole 2 cap PO AC #0 cap 05/05/16 06/25/16 Clinic Tamsulosin HCl 1 cap PO BID #0 cap 05/05/16 06/25/16 Clinic Levothyroxine Sodium 1 tab PO DAILY tab 06/11/16 06/25/16 History Docusate Sodium [Colace] 100 mg PO BID cap 06/21/16 06/25/16 Rx QUEtiapine Tab [SEROquel Tab] 25 mg PO BEDTIME tab 06/21/16 06/25/16 Rx oxyCODONE/APAP 5/325 Tab 1 tab PO Q4H PRN #40 tab 06/30/16 Rx [Percocet 5/325 Tab] 8. Time, care, counseling and coordination of care for this discharge is greater than 30 minutes. Exam - Vitals Vital Signs: Vital Signs Temperature 97.8 F Temperature Source Temporal Artery Scan Pulse Rate [Apical] 68 Pulse Rate [Pulse Oximeter] 95 Respiratory Rate 24 Blood Pressure [Left Arm] 119/66 Pulse Ox 91 Oxygen Flow Rate 1 Oxygen Delivery Method Room Air Height 5 ft 1 in Weight 66.95 kg
--- NOTE | 2016-06-30 20:03 | DI ---
CT CTA NECK W/WO CN,06/30/2016 6:58 PM: Clinical History: Tightening sensation of the lower part of the neck. Previous Exam: None at this facility. Findings: Multiple helically acquired CT images are obtained through the neck both before and after the intrave nous administration of 75 cc of Isovue 300, and demonstrate clear lung apices. Diffuse peripheral vascular disease is noted of the aortic arch. Incidental note is made of a bovine arch. Diffuse degenerative changes of the spine are seen with osteophyte formation and loss of intervertebr al disc height worst at the C5/6 and C6/level with uncovertebral joint osteophyte formation and facet hypertrophy. The base of the skull is unremarkable. The thyroid is within normal limits. The subclavian artery is are unremarkable. The carotid arteries demonstrate significant hard plaque formation within the carotid bulbs bilateral ly worse on the right than the left where there is approximately 50% stenosis. There is less than 50% stenosis on the left. Vertebral arteries demonstrate normal course and caliber. The basilar artery is also unremarkable. The are pharyngeal fat is unremarkable. The surrounding soft tissues are also unremarkable. The paranasal sinuses are within normal limits. The soft tissues of the cervical spine are also unremarkable. Impression: 1. Diffuse degenerative changes of the cervical spine with uncovertebral joint osteophyte formation w orst involving the lower cervical spine at C5/6 and C6/7. 2. Approximately 50% stenosis of the right carotid bulb.
[2016-06-30] MEDS: QUEtiapine Tab 25 MG TAB PO SCH (20:26)
[2016-07-01] MEDS: oxyCODONE-ACETAMINOPHEN 5-325 TAB PO PRN ×2 (02:25→08:19)
[2016-07-01] MEDS: LEVOTHYROXINE 100 MCG TABLET PO SCH (05:17)
[2016-07-01] MEDS: OMEPRAZOLE 40 MG CAPSULE PO SCH (07:17)
[2016-07-01] MEDS: LOSARTAN 50 MG TABLET PO SCH (08:19)
[2016-07-01] MEDS: ENOXAPARIN SODIUM 30 MG/0.3 ML SYRINGE SUBCUT SCH (08:19)
[2016-07-01] MEDS: DOCUSATE 100 MG CAPSULE PO SCH (08:19)
[2016-07-01] MEDS: ASPIRIN EC 81 MG TABLET PO SCH (08:19)
[2016-07-01] MEDS: TAMSULOSIN 0.4 MG CAPSULE PO SCH (08:20)
[2016-07-01 09:00] VITALS: RESP 18; TEMP 98.2
--- NOTE | 2016-07-01 10:15 | DI ---
XR KNEE 3 VW,06/30/2016 1:25 PM: Clinical History: Left total knee arthroplasty. Previous Exam: June 17, 2016 Findings: 3 views of the left knee are obtained, and demonstrate anatomic alignment without fractures. There is no hardware loosening. The surrounding soft tissues are unremarkable. Impression: No significant change from the prior exam.
== END 2016-07-01 09:54 | disposition home or self-care (01) | DRG 948 ==
LOC: MED/SURG 13:50
PROVIDERS: ADMIT Family Medicine; ATTEND Family Medicine
DX: R53.1 Weakness (principal); F05 Delirium due to known physiological condition; Z96.652 Presence of left artificial knee joint; E03.9 Hypothyroidism, unspecified; E11.9 Type 2 diabetes mellitus without complications; I10 Essential (primary) hypertension; E78.00 Pure hypercholesterolemia, unspecified; D53.9 Nutritional anemia, unspecified; F03.90 Unspecified dementia, unspecified severity, without behavioral disturbance, psychotic disturbance, mood disturbance, and anxiety
CPT/HCPCS: 70498; 73562; 82948; 94761; 97010; 97110; 97116; 97140; 97164; 97168; 97530; J1650